=== PATIENT | male | born 2000 ===

== ENCOUNTER 2021-06-13 13:00 | Emergency (ER) | payer OTHER, SELFPAY ==
--- NOTE | ~2021-06-13 | CT_ITS ---
EXAMINATION: CT ABDOMEN AND PELVIS WITHOUT CONTRAST CLINICAL INFORMATION: Hematuria and abdominal pain COMPARISON: None TECHNIQUE: Multidetector volumetric imaging was performed from the superior aspect of the liver through the pubic symphysis. Sagittal and coronal reformatted images were obtained on the technologist's workstation. This CT examination was performed using dose optimization techniques as appropriate, variously including the following: *Automated exposure control *Adjustment of mA and/or kV according to patient size (this includes techniques or standardized protocols for targeted exams where dose is matched to indication/reason for exam; i.e. extremities or head) *Use of iterative reconstruction technique DLP: 504 mGy-cm FINDINGS: LUNG BASES: The visualized lung bases are unremarkable. LIVER, GALLBLADDER, AND BILIARY TREE: The liver is normal in size, shape, and attenuation. No focal hepatic lesion or biliary ductal dilatation is present. The gallbladder is unremarkable with no evidence of radiopaque gallstones, gallbladder wall thickening, or obvious pericholecystic inflammatory changes. PANCREAS: Unremarkable. SPLEEN: Unremarkable. ADRENAL GLANDS: Unremarkable. KIDNEYS AND URETERS: The kidneys are normal in size, shape, and attenuation. No hydronephrosis, hydroureter, or calculi seen. No perinephric stranding. BLADDER: Not optimally distended. GASTROINTESTINAL TRACT: The small and large bowel are unremarkable. The appendix is unremarkable. ABDOMINAL WALL: No significant hernia is appreciated. LYMPH NODES: Normal. VASCULAR: Unremarkable. PELVIC VISCERA: Unremarkable. OSSEOUS STRUCTURES: Unremarkable. CT/CT abdomen pelvis wo con IMPRESSION: Unremarkable exam. Fleischner guidelines were followed.
[2021-06-13 13:17] VITALS: BP 127/76; PULSE 88; RESP 18; TEMP 37.4; O2SAT 100; BMI 25.9
[2021-06-13 13:36] LABS: Appearance Urine CLOUDY; Glucose Urine UA NEG (NEG); Leukocyte Esterase Urine NEG (NEG); Nitrite Urine NEG (NEG); PH 8.5 (5.0-8.0); Specific Gravity - Urine 1.025 (1.005-1.025); UACC Culture Trigger NO; Urine Blood 3+ (NEG); Urine Ketones NEG (NEG)
[2021-06-13 13:43] LABS: Urine Protein 2+ MG/DL (NEG-TRACE)
[2021-06-13 13:44] LABS: Color Urine DK YELLOW
[2021-06-13 13:45] LABS: RBC Urine TNTC /HPF (0)
[2021-06-13 16:55] LABS: MANUAL DIFF FLAG NO
[2021-06-13 17:03] LABS: Basophils Percent Auto 0.3 % (0-2); Eosinophils Percent Auto 0.3 % (0-4); Hematocrit 44.8 % (42.0-52.0); Hemoglobin 15.2 g/dl (14.0-18.0); Imm Gran Abs Auto 0.03 X10*3/uL (0.00-0.03); Imm Gran Pct Auto 0.3 % (0.0-0.4); Lymphocytes Absolute Auto 2.1 X10*3/uL (1.2-4.9); Lymphocytes Percent Auto 22.6 % (20-40); Mean Corpuscular HGB Conc 33.9 g/dl (31.0-36.0); Mean Corpuscular Hemoglobin 30.7 pg (27.0-33.0); Mean Corpuscular Volume 90.5 fL (80.0-98.0); Mean Platelet Volume 9.4 fL (9.4-12.4); Monocytes Absolute Auto 0.6 X10*3/uL (0.1-1.2); Monocytes Percent Auto 6.2 % (2-11); Neutrophils Absolute Auto 6.5 x10*3/uL (2.0-8.3); Neutrophils Percent Auto 70.3 % (45-73); Platelet Count 240 X10*3/uL (160-400); Red Blood Count 4.95 X10*6/uL (4.60-5.80); Red Cell Distribution Width 12.2 % (11.0-16.0); White Blood Count 9.3 X10*3/uL (4.8-10.8)
--- NOTE | 2021-06-13 17:03 | ED.MALEGU ---
HPI - Male Genitourinary General Chief complaint: Urogenital-Male Stated complaint: urinating blood Time Seen by Provider: 06/13/21 15:41 Source: patient Mode of arrival: ambulatory Limitations: no limitations History of Present Illness HPI Narrative: 20-year-old male with no significant past medical history presenting to the ED with complaints of dysuria with associated hematuria that started today with small blood clots. Reports that he was seen at an outpatient clinic and was tested for gonorrhea chlamydia and was given a shot and an antibiotic to take twice a day for 7 days although he was called after 4 days and told that his gonorrhea chlamydia were negative therefore he discontinued taking his doxycycline. He reports that he was taking a multivitamin before he was seen at the clinic and he believes that this is when the hematuria/dysuria started. He reports that when he was given the doxycycline he stopped taking the multivitamin and he no longer had the dysuria/hematuria. Although when he was told that he did not have any gonorrhea chlamydia he discontinued the doxycycline after 4 days and he started his multivitamin the centrum and the hematuria/dysuria started again. He reports that he recently had unprotected intercourse with a female approximately 6 weeks ago. He reports he also started a multivitamin. He denies any fevers, chills, dizziness, headache, neck pain/stiffness, trouble swallowing or breathing, sore throat, cough, abdominal pain, back pain, black or bloody stools, rashes or any other symptoms complaints or concerns at this time. Complaint: dysuria and other (hematuria) Onset (ago): day(s) (Today) Duration: constant Location: penis Severity: mild Quality: burning Relieving factors: none Exacerbating factors: urination Associated symptoms: Reports denies other symptoms Related Data Sexually active: Yes Previous Rx's Medication Instructions Recorded doxycycline hyclate 100 mg tablet 100 mg PO BID 10 Days #20 tab 06/13/21 Allergies Allergy/AdvReac Type Severity Reaction Status Date / Time egg Allergy Vomiting Verified 06/13/21 13:16 Review of Systems Review of Systems: Constitutional : No Weight loss, No Fever, No Chills, No Night Sweats, No Fatigue, NoMalaise ENT/Mouth: No ear pain, No sore throat, No Difficulty swallowing Cardiovascular : No Chest Pain, No SOB, No Dyspnea on Exertion, No Orthopnea, NoEdema, No Palpitations Respiratory : No Cough, No Sputum, No Wheezing, No Dyspnea Gastrointestinal : No Nausea, No Vomiting, No Diarrhea, + abdominal Pain, No Hematochezia, No Melena Genitourinary : + dysuria/hematuria, No testicular pain, No irregular bleeding, No Urinary Frequency, No Urinary Incontinence, No Urgency, No Flank Pain Musculoskeletal : No joint pain, No Myalgias, No Joint Swelling Skin : No Skin Lesions, No rash Neuro : No Weakness, No Numbness, No Paresthesias, No Loss of Consciousness, NoDizziness, No Headache Psych : No Social Issues, Heme/Lymph: No Bruising, No Bleeding,No Lymphadenopathy Endocrine : No Polyuria, No Polydipsia, No Temperature Intolerance PATIENT DENIES ANY THOUGHTS OF STDS Yes all other systems are reviewed and are negative [facility] Past Medical History Attestation statement: The following information was validated with the patient. Social History Social History Advance Directives: No Advance Directives Information Provided: Yes Physical Exam Vital Signs: Vital Signs: Last Vital Signs Temp 99.4 F 06/13/21 13:17 Pulse 88 06/13/21 13:17 Resp 18 06/13/21 13:17 BP 127/76 06/13/21 13:17 Pulse Ox 100 06/13/21 13:17 BMI result Body Mass Index 25.9 vital signs have been reviewed as normal and appeared to be correct. Blood pressure normal. Heart rate normal. Respiration rate normal. Temperature normal. Oxygen saturation normal. Appearance: Alert. Oriented X3. No acute distress. Head: Normal external exam. Normocephalic. Atraumatic. Eyes: PERRLA. EOMI. Conjunctiva and sclera normal. Eyelids normal. ENT: Pharynx normal. Uvula midline. Moist mucous membranes. Neck: Normal inspection. Neck supple. FROM. No adenopathy. No meningeal signs. CVS: Normal heart rate and rhythm. Heart sound normal. No murmurs noted. Pulses normal throughout. Respiratory: No respiratory distress. Painless inspiration. Breath sounds normal. No wheezes/rales/rhonchi noted. Chest nontender. No accessory muscle usage noted or decreased air movement noted. Abdomen: Soft and nontender. Bowel sounds normal in all 4 quadrants. No distention noted. No organomegaly noted. No visible injury noted. : Chaperoned by KRISTY Steen. Normal external exam. No masses/lumps/ecchymosis/edema/erythema/lacerations/lesions/vesicles/induration or tenderness noted. No hernia noted. No inguinal lymphadenopathy noted. Normal penis free of discharge. The scrotum is normal. Testicles are both descended bilaterally and appear normal. No hydrocele or scrotal mass/swelling noted. No varicocele. Epididymides normal. No blue dot sign. Back: No CVA tenderness. Full range of motion noted. Skin: Skin warm and dry. Normal skin color. Normal skin turgor. No rashes/lesions/lacerations noted. Extremities: Extremities exhibit normal range of motion. Extremities nontender. Neuro: Oriented X 3. No motor deficit. No sensory deficit. Reflexes normal. Course Course Course Narrative: 16:45pm - 20-year-old male with no significant past medical history presenting to the ED with complaints of dysuria with associated hematuria that started today with small blood clots. Reports that he was seen at an outpatient clinic and was tested for gonorrhea chlamydia and was given a shot and an antibiotic to take twice a day for 7 days although he was called after 4 days and told that his gonorrhea chlamydia were negative therefore he discontinued taking his doxycycline. He reports that he was taking a multivitamin before he was seen at the clinic and he believes that this is when the hematuria/dysuria started. He reports that when he was given the doxycycline he stopped taking the multivitamin and he no longer had the dysuria/hematuria. Although when he was told that he did not have any gonorrhea chlamydia he discontinued the doxycycline after 4 days and he started his multivitamin the centrum and the hematuria/dysuria started again. He reports that he recently had unprotected intercourse with a female approximately 6 weeks ago. He reports he also started a multivitamin. He denies any fevers, chills, dizziness, headache, neck pain/stiffness, trouble swallowing or breathing, sore throat, cough, abdominal pain, back pain, black or bloody stools, rashes or any other symptoms complaints or concerns at this time. Plan: Labs, CT scan abdomen pelvis without IV contrast, UA, gonorrhea and chlamydia urine then re-evaluate. Reevaluation(s) Reevaluation #1: - labs returned and patient's AST/ALT at 174/105 otherwise all other labs are within normal limits. UA revealed +2 protein and blood in his urine otherwise no evidence of UTI. Patient has gonorrhea chlamydia urine pending although will not treat as patient is very adamant that he was negative approximately few days ago and he was already treated with Rocephin and doxycycline for 4 days. - therefore I discussed this case with Dr. Zambrano and at this point Dr. Dove and I do not believe that the patient needs any additional antibiotics he will need to follow up with Urology for possible outpatient cystoscope. I explained to the patient. And due to him reporting that he was already treated for gonorrhea chlamydia and he was negative will not treat at this time. Patient understands agrees with this plan. Time: 17:31 [facility] - Male Genitourinary Medical Records Attestation: I reviewed the patient's medical records. Lab Data Attestation: I reviewed the patient's lab results. Result diagrams: 06/13/21 16:50 06/13/21 16:50 Labs: Lab Results 06/13/21 06/13/21 06/13/21 Range/Units 13:18 16:50 16:50 WBC 9.3 (4.8-10.8) X10*3/uL RBC 4.95 (4.60-5.80) X10*6/uL Hgb 15.2 (14.0-18.0) g/dl Hct 44.8 (42.0-52.0) % MCV 90.5 (80.0-98.0) fL MCH 30.7 (27.0-33.0) pg MCHC 33.9 (31.0-36.0) g/dl RDW 12.2 (11.0-16.0) % Plt Count 240 (160-400) X10*3/uL MPV 9.4 (9.4-12.4) fL Immature Gran % (Auto) 0.3 (0.0-0.4) % Neut % (Auto) 70.3 (45-73) % Lymph % (Auto) 22.6 (20-40) % Harlan % (Auto) 6.2 (2-11) % Eos % (Auto) 0.3 (0-4) % Baso % (Auto) 0.3 (0-2) % Lymph # (Auto) 2.1 (1.2-4.9) X10*3/uL Harlan # (Auto) 0.6 (0.1-1.2) X10*3/uL Eos # (Auto) 0.0 (0.0-0.4) X10*3/uL Baso # (Auto) 0.0 (0.0-0.2) X10*3/uL Abs Immat Gran (auto) 0.03 (0.00-0.03) X10*3/uL Absolute Neuts (auto) 6.5 (2.0-8.3) x10*3/uL Absolute Nucleated RBC 0.000 (0.0-0.012) X10*3/uL Nucleated RBC % (auto) 0.0 (0.0-0.2) /100WBC Sodium 140 (135-145) mmol/L Potassium 4.4 (3.3-5.1) mmol/L Chloride 104 (96-108) mmol/L Carbon Dioxide 28 (22-29) mmol/L Anion Gap 12 (12-20) BUN 13 (9-16) mg/dL Creatinine 1.07 (0.5-1.4) mg/dL Estim Creat Clear Calc 115.3 Estimated GFR > 60 Random Glucose 89 (60-115) mg/dL Calcium 9.9 (8.4-10.2) mg/dL Total Bilirubin 0.4 (0.0-1.0) mg/dL AST 174 H (5-37) U/L ALT 105 H (0-40) U/L Alkaline Phosphatase 89 (39-117) U/L Total Protein 8.2 H (6.5-8.0) g/dL Albumin 4.5 (3.5-5.0) g/dL Urine Color DK YELLOW Urine Appearance CLOUDY Urine pH 8.5 H (5.0-8.0) Ur Specific [place] 1.025 (1.005-1.025) Urine Protein 2+ H (NEG-TRACE) MG/DL Urine Glucose (UA) NEG (NEG) MG/DL Urine Ketones NEG (NEG) MG/DL Urine Blood 3+ H (NEG) Urine Nitrite NEG (NEG) Ur Leukocyte Esterase NEG (NEG) Urine RBC TNTC H (0) /HPF Urine WBC 1-4 (0-4) /HPF Ur Squamous Epith Cells NONE /LPF Urine Bacteria NONE /LPF Imaging Data CT scan abdomen pelvis without IV contrast: Attestation: I personally reviewed and interpreted this imaging study as follows: Radiologist's impression: FINDINGS: LUNG BASES: The visualized lung bases are unremarkable.? LIVER, GALLBLADDER, AND BILIARY TREE: The liver is normal in size, shape, and attenuation. No focal hepatic lesion or biliary ductal dilatation is present. The gallbladder is unremarkable with no evidence of radiopaque gallstones, gallbladder wall thickening, or obvious pericholecystic inflammatory changes.? PANCREAS: Unremarkable.? SPLEEN: Unremarkable.? ADRENAL GLANDS: Unremarkable.? KIDNEYS AND URETERS: The kidneys are normal in size, shape, and attenuation. No hydronephrosis, hydroureter, or calculi seen. No perinephric stranding. ? BLADDER: Not optimally distended. GASTROINTESTINAL TRACT: The small and large bowel are unremarkable. The appendix is unremarkable.? ABDOMINAL WALL: No significant hernia is appreciated.? LYMPH NODES: Normal. VASCULAR: Unremarkable. PELVIC VISCERA: Unremarkable.? OSSEOUS STRUCTURES: Unremarkable.? CT/CT abdomen pelvis wo con IMPRESSION: Unremarkable exam. ? Fleischner guidelines were followed. Discharge Plan Discharge Clinical Impression: Hematuria, Dysuria, Elevated LFTs Patient Disposition: Home, Self-Care Instructions: Hematuria (ED), Dysuria (ED) Additional Instructions: You have pending lab results if any are positive you will be contacted. Return if any new or worsening symptoms. Follow-up with urology call them tomorrow morning and tell them that you were seen in the emergency department and you basically had a negative workup your urine was only thing that was positive which revealed blood otherwise no evidence of UTI. You have pending lab results although we will not treat you for them due to you reported that you are already negative and were treated prior to this. You will need to see Urology for an outpatient cystoscope. Also follow-up with her primary care provider. Return if any new or worsening symptoms. Prescriptions: New doxycycline hyclate 100 mg tablet 100 mg PO BID 10 Days Qty: 20 0RF Referrals: Physician,None [Primary Care Provider] - 2 days (Your PCP) Robles Tony III, MD [Physician] - 2 days (Call tomorrow to make a follow-up appointment within a week for outpatient cystoscopy) Robles Tony III, MD [Physician] - 2 days Print Language: Monegasque
[2021-06-13 17:16] LABS: Alanine Aminotransferase 105 U/L (0-40); Albumin Level 4.5 g/dL (3.5-5.0); Alkaline Phosphatase 89 U/L (39-117); Anion Gap 12 (12-20); Aspartate Amino Transferase 174 U/L (5-37); Bilirubin Total 0.4 mg/dL (0.0-1.0); Blood Urea Nitrogen 13 mg/dL (9-16); Calcium 9.9 mg/dL (8.4-10.2); Carbon Dioxide 28 mmol/L (22-29); Chloride 104 mmol/L (96-108); Creatinine Clr Calc Pharmacy 115.3; Estimated Glomerular Filt Rate > 60; Glucose Random 89 mg/dL (60-115); Potassium 4.4 mmol/L (3.3-5.1); Sodium 140 mmol/L (135-145); Total Protein 8.2 g/dL (6.5-8.0)
[2021-06-13 17:42] VITALS: BP 136/73; PULSE 80; RESP 16; TEMP 36.2; O2SAT 100
[2021-06-13 18:23] LABS: CT PCR NOT DETECTED (Not Detect.); NG PCR NOT DETECTED (Not Detect.)
== END 2021-06-13 17:51 | disposition home or self-care (01) ==
PROVIDERS: Physician Assistant Medical; Emergency Provider Emergency Medicine Emergency Medical Services
DX: R31.9 Hematuria, unspecified (principal); R30.0 Dysuria; R79.89 Other specified abnormal findings of blood chemistry
CPT/HCPCS: 36415; 74176; 80053; 81001; 85025; 87491; 87591; 99283; 99284

== ENCOUNTER 2022-04-26 10:50 | Outpatient (REF) | payer OTHER, SELFPAY ==
[2022-04-26 13:31] LABS: MANUAL DIFF FLAG NO
[2022-04-26 13:41] LABS: Basophils Percent Auto 0.5 % (0-2); Eosinophils Percent Auto 0.7 % (0-4); Hematocrit 42.8 % (42.0-52.0); Hemoglobin 14.6 g/dl (14.0-18.0); Imm Gran Abs Auto 0.03 X10*3/uL (0.00-0.03); Imm Gran Pct Auto 0.5 % (0.0-0.4); Lymphocytes Absolute Auto 1.9 X10*3/uL (1.2-4.9); Lymphocytes Percent Auto 32.7 % (20-40); Mean Corpuscular HGB Conc 34.1 g/dl (31.0-36.0); Mean Corpuscular Hemoglobin 30.1 pg (27.0-33.0); Mean Corpuscular Volume 88.2 fL (80.0-98.0); Mean Platelet Volume 9.8 fL (9.4-12.4); Monocytes Absolute Auto 0.6 X10*3/uL (0.1-1.2); Monocytes Percent Auto 10.2 % (2-11); Neutrophils Absolute Auto 3.3 x10*3/uL (2.0-8.3); Neutrophils Percent Auto 55.4 % (45-73); Platelet Count 247 X10*3/uL (160-400); Red Blood Count 4.85 X10*6/uL (4.60-5.80); Red Cell Distribution Width 12.6 % (11.0-16.0); White Blood Count 5.9 X10*3/uL (4.8-10.8)
[2022-04-26 13:51] LABS: Appearance Urine Clear; Color Urine Yellow; Glucose Urine UA Negative (Negative); Leukocyte Esterase Urine Small (1+) (Negative); Nitrite Urine Negative (Negative); PH 5.5 (5.0-9.0); Specific Gravity - Urine 1.025 (1.005-1.025); UMIC TRIGGER UA YES; Urine Blood Trace (Negative); Urine Ketones Negative (Negative); Urine Protein Negative (Neg-Trace)
[2022-04-26 13:55] LABS: Bacteria Urine 1+ (None Seen); Hyaline Casts Urine 0-2 /LPF (0-2); RBC Urine 0-2 /HPF (0-2); WBC Urine 21-50 /HPF (0-5)
[2022-04-26 14:21] LABS: Creatinine Urine 209.87 mg/dL; Microalbum/Creatinine Ratio Ur 4.7 ug/mg cr
[2022-04-26 14:55] LABS: Alanine Aminotransferase 36 U/L (0-40); Albumin Level 4.3 g/dL (3.5-5.0); Alkaline Phosphatase 91 U/L (39-117); Anion Gap 10 (12-20); Aspartate Amino Transferase 23 U/L (5-37); Bilirubin Total 0.7 mg/dL (0.0-1.0); Blood Urea Nitrogen 15 mg/dL (9-16); Calcium 9.3 mg/dL (8.4-10.2); Carbon Dioxide 28 mmol/L (22-29); Chloride 106 mmol/L (96-108); Cholesterol 243 mg/dL; Estimated Glomerular Filt Rate > 60; Glucose Fasting 97 mg/dL (60-99); HDL Cholesterol 42 mg/dL; LDL Cholesterol Calculated 185 mg/dl; Potassium 4.3 mmol/L (3.3-5.1); Sodium 140 mmol/L (135-145); TSH reflex Free T4 2.44 uIU/mL (0.32-4.0); Total Protein 7.7 g/dL (6.5-8.0); Triglycerides 84 mg/dL
[2022-04-26 15:21] LABS: CT PCR NOT DETECTED (Not Detect.); NG PCR NOT DETECTED (Not Detect.)
[2022-04-27 06:50] LABS: Syphilis Screen Nonreactive (Nonreactive)
[2022-04-27 07:41] LABS: HBS Num1 253.91 mIU/mL (0-7.99); HBsAGNum1 0.41 S/CO (0.00-0.99); HIV AB/AG Nonreactive (Nonreactive); HIV Num 1 0.15 S/CO (0.00-0.99); Hepatitis B Core Antibody Nonreactive (Nonreactive); Hepatitis B Surface Antigen Negative (Negative); ~HepC Num1 0.09 S/CO (0.00-0.79); ~Hepatitis B Surface Antibody REACTIVE (Nonreactive); ~Hepatitis C Antibody Nonreactive (Nonreactive)
== END 2022-04-26 10:51 | disposition home or self-care (01) ==
LOC: HO.WFDLDS 10:50
PROVIDERS: Visit Provider Family Medicine
DX: Z00.00 Encounter for general adult medical examination without abnormal findings (principal); Z11.3 Encounter for screening for infections with a predominantly sexual mode of transmission; Z11.4 Encounter for screening for human immunodeficiency virus [HIV]; I10 Essential (primary) hypertension
CPT/HCPCS: 36415; 80053; 80061; 81001; 82043; 84443; 85025; 86704; 86706; 86780; 86803; 87340; 87389; 87491; 87591

== ENCOUNTER 2022-04-27 12:16 | Outpatient (REF) | payer OTHER, SELFPAY ==
--- NOTE | ~2022-04-27 | XR_ITS ---
EXAMINATION: XR TIBIA AND FIBULA, RIGHT CLINICAL INFORMATION: Pain. COMPARISON: None TECHNIQUE: AP and lateral views of the right tibia and fibula were obtained. FINDINGS: The bones and soft tissues are normal. No fracture. No periosteal thickening or erosion. No osseous lesions. XR/XR tibia fibula RT 2V IMPRESSION: Normal right tibia and fibula. EXAMINATION: XR TIBIA AND FIBULA, LEFT CLINICAL INFORMATION: Pain. COMPARISON: None TECHNIQUE: AP and lateral views of the left tibia and fibula were obtained. FINDINGS: The bones and soft tissues are normal. No fracture. No periosteal thickening or erosion. No osseous lesions. IMPRESSION: Normal left tibia and fibula.
--- NOTE | ~2022-04-27 | XR_ITS ---
EXAMINATION: XR TIBIA AND FIBULA, RIGHT CLINICAL INFORMATION: Pain. COMPARISON: None TECHNIQUE: AP and lateral views of the right tibia and fibula were obtained. FINDINGS: The bones and soft tissues are normal. No fracture. No periosteal thickening or erosion. No osseous lesions. XR/XR tibia fibula LT 2V IMPRESSION: Normal right tibia and fibula. EXAMINATION: XR TIBIA AND FIBULA, LEFT CLINICAL INFORMATION: Pain. COMPARISON: None TECHNIQUE: AP and lateral views of the left tibia and fibula were obtained. FINDINGS: The bones and soft tissues are normal. No fracture. No periosteal thickening or erosion. No osseous lesions. IMPRESSION: Normal left tibia and fibula.
[2022-04-27 13:54] LABS: Appearance Urine Clear; Color Urine Yellow; Glucose Urine UA Negative (Negative); Leukocyte Esterase Urine Small (1+) (Negative); Nitrite Urine Negative (Negative); Specific Gravity - Urine 1.025 (1.005-1.025); UMIC TRIGGER UA YES; Urine Blood Negative (Negative); Urine Ketones Negative (Negative); Urine Protein Negative (Neg-Trace)
[2022-04-27 13:59] LABS: Bacteria Urine None Seen (None Seen); Hyaline Casts Urine 0-2 /LPF (0-2); Squamous Epithelial Cell Urine 0-2 /HPF (0-2); WBC Urine 21-50 /HPF (0-5)
== END 2022-04-27 12:17 | disposition home or self-care (01) ==
LOC: HO.XRAY 12:16
PROVIDERS: PCP Family Medicine; Visit Provider Family Medicine
DX: Z00.00 Encounter for general adult medical examination without abnormal findings (principal); M79.662 Pain in left lower leg; M79.661 Pain in right lower leg; R82.90 Unspecified abnormal findings in urine
CPT/HCPCS: 73590; 81001

== ENCOUNTER 2022-07-06 13:00 | Outpatient (RCR) | payer OTHER, SELFPAY ==
--- NOTE | 2022-05-14 15:26 | MHC.PT.EP ---
[facility] [place] Office [place] [facility] [place] Office [address] Addis Elliott [address] [phone] F: [phone] F: [phone] F: [phone] F: [phone] Physical Therapy Plan of Care Date of Evaluation: Date of Surgery: Diagnosis: PAIN IN TATUM LOWER LEGS, ? JARRELL SPLINTS Assessment: 21 YO MALE REF TO PT WITH TATUM JARRELL SPLINTS W ONSET 12/2021, SUSTAINED AFTER RUNNING IN [place] (Pt IS [place] [employer]). Pt NOTES HE HAS NOT BEEN RUNNING OR EXERCISING, HE IS NOT SYMPTOMATIC WITH WALKING, HOWEVER, W REPETITIVE STAIR NAVIGATION OR LIFTING, HE HAS SXS. OBJECTIVE FINDINGS INCLUDE: HYPOMOBILE TATUM HIPS AND ANKLE DF/PF, MECHANICAL ISSUE OF GENU VALGUS AND PES PLANUS, GENERALIZED WEAKNESS IN LEs AND LUMBOPELVIC REGION, AND SOFT TISSUE PAIN IN TATUM MID SHINS. Pt NOTES HE HAS NOT TRIALED ICE OR COMPRESSION SOCKS- AND , HE DENIES ORTHOTIC TRIAL. Pt WOULD BENEFIT FROM PT TO ADDRESS THE ABOVE FINDINGS, PAIN/ SX MGMT, AND DEV A PROGRESSIVE HEP. Frequency and Duration: The patient will be seen 2 x WK x 5 WKS Short Term Goals: * DECR TATUM JARRELL SXS TO 2-3/10 W REG ADLs *IMPROVE AROM TATUM ANKLES/ HIP FLEXORS/ ITB/ HIP ROTATORS *Pt DEMON PROPR SQUAT MECH Single Needle Operator Goals: * Pt INDEP W HEP AND SELF-SX MGMT TECHN *Pt RESUME REG ADLs/ EXERCISE AND PROGR RETURN TO [place] -> RUNNING W MORE EFFICIENT MECHANICS * Pt'S LEFI SCORE IMPROVE BY 10 POINTS (AT EVAL 44/80) *Pt'S LEs STRENGTH IMPROVED BY 1/2 TO 1 GRADE Treatment Plan: Modalities to reduce pain, spasms and effusion. Manual therapy to restore motion and function. Therapeutic exercise to improve strength and flexibility. Neuromuscular re-education for posture and balance. Therapeutic activities to return to functional activities of daily living. Electronically signed by: Miracle Chi,PT Please sign and return to therapist. Thank you for your referral.
--- NOTE | 2022-07-25 14:49 | MHC.PT.DC ---
[facility] [place] Office [place] Office [place] Office [address] Addis Elliott [address] [phone] F: [phone] F: [phone] F: [phone] F: [phone] Physical Therapy Discharge Report Diagnosis: PAIN IN TATUM LOWER LEGS, ? JARRELL SPLINTS Date of Surgery: Date of Evaluation: 05/14/22 Date of Discharge: 07/25/22 Treatments to Date: 7 Cancellations to Date: 6 No Shows to Date: 3 Discharge Status: Achieved Goals Improved Function Independent with HEP Visit Non-compliance Discharge Summary: THE Pt HAS PROGRESSED IN PT ADDRESSING BILAT JARRELL SPLINTS- WE RE-EDUC Pt REGARDING THE IMPORTANCE OF HEP COMPLIANCY TO REDUCE EXACERBATION OF SXS AND PREVENTATIVE MANAGEMENT OF HIS SXS. AT HIS LAST ATTENDED PT SESSION ON 07/06/22, THE Pt RAN ON THE TM , HE NOTED MILD TATUM MEDIAL JARRELL SORENESS- HE HAS PRONATION DROP AND TIGHTER Rt > Lt HIP GIRDLE. Pt WAS TO INCORPORATE A TRIAL OF SELF- ICING AND WE DISCUSSED FOOTWEAR AND COMPRESSION SOCKS. HE IS D/C AT THIS TIME DUE TO OUR DEPT ATTENDANCE POLICY. Electronically signed by: CECELIA KOHLER,PT Please sign and return to therapist. Thank you for your referral.
== END 2022-07-25 14:50 | disposition home or self-care (01) ==
LOC: HO.PT 13:00
PROVIDERS: PCP Family Medicine; Visit Provider Family Medicine
DX: M79.661 Pain in right lower leg (principal); M79.662 Pain in left lower leg
CPT/HCPCS: 97110; 97140; 97162; 97530

== ENCOUNTER → 2022-07-13 11:01 | Outpatient (REF) | payer OTHER, SELFPAY ==
--- NOTE | ~2022-07-13 | NM_ITS ---
EXAMINATION: THREE PHASE BONE SCAN CLINICAL INFORMATION: Bilateral rabago pain, rule out stress fractures. Patient states in the and runs in fatigue and bruits.. COMPARISON: No previous bone scan is available for comparison. Radiographs of the bilateral lower legs dated 04/27/2022 are available for comparison.. TECHNIQUE: Initial rapid sequence images were obtained over the lower legs in the anterior and posterior projections during the bolus injection of 32 mCi Tc-99m MDP. Static images of the knees to the feet in multiple projections were then obtained 2.25 hours post injection. FINDINGS: Initial rapid sequence images show bilaterally symmetrical flow to the knees and lower extremities. Blood pool images obtained immediately following the flow study show a faint equivocal focus of minimally increased activity, likely due to early static uptake medially in the mid left tibia. The delayed static images show a moderate diffuse increase in activity in the proximal two thirds of the anterolateral cortices of both tibias. In addition, there are foci which are fairly symmetrically located bilaterally in the midshaft of both tibias, slightly more intensely on the left in the medial posterior cortex. There is also a faint focus of increased activity laterally in the mid right foot, probably at the base of the right fifth metatarsal bone. Very faintly increased activity is present in the posterior plantar surface of the right calcaneus. No other abnormalities are visualized.. NM/NM bone 3 phase IMPRESSION: 1. Bilateral abnormalities in the posterior medial cortex of the mid tibial shafts bilaterally, slightly more prominently on the left are noted and are most consistent with recent or subacute stress fractures. 2. Additional moderately diffuse abnormalities in the anterolateral cortices of both tibias are present, and these abnormalities are most likely due to a diffuse periostitis, coexisting with the stress fractures described above.. 3. A faint abnormality is just barely visualized in the region of the right fifth metatarsal base. This is probably due to a healing fracture at this site and does not appear acute. 4. Also just barely visualized is a faint abnormality in the posterior plantar surface of the right calcaneus which is nonspecific but likely due to a very mild plantar fasciitis.
== END ==
LOC: HO.NUCMED 11:01
PROVIDERS: PCP Family Medicine; Visit Provider Family Medicine
DX: M79.661 Pain in right lower leg (principal); M79.662 Pain in left lower leg
CPT/HCPCS: 78315; A9503

== ENCOUNTER 2022-10-17 11:48 | Outpatient (REF) | payer OTHER, SELFPAY ==
[2022-10-17 14:30] LABS: Alanine Aminotransferase 51 U/L (0-40); Albumin Level 4.3 g/dL (3.5-5.0); Alkaline Phosphatase 107 U/L (39-117); Anion Gap 12 (12-20); Aspartate Amino Transferase 29 U/L (5-37); Bilirubin Total 0.7 mg/dL (0.0-1.0); Blood Urea Nitrogen 12 mg/dL (9-16); Carbon Dioxide 26 mmol/L (22-29); Chloride 106 mmol/L (96-108); Cholesterol 230 mg/dL; Estimated Glomerular Filt Rate > 60; Glucose Fasting 88 mg/dL (60-99); HDL Cholesterol 34 mg/dL; LDL Cholesterol Calculated 168 mg/dl; Sodium 140 mmol/L (135-145); Total Protein 8.1 g/dL (6.5-8.0); Triglycerides 144 mg/dL
== END 2022-10-17 11:49 | disposition home or self-care (01) ==
LOC: HO.HMGCLDS 11:48
PROVIDERS: PCP Family Medicine; Visit Provider Family Medicine
DX: Z00.00 Encounter for general adult medical examination without abnormal findings (principal)
CPT/HCPCS: 36415; 80053; 80061

== ENCOUNTER 2022-11-09 13:35 | Outpatient (AMB) | payer OTHER, SELFPAY ==
[2022-11-09 13:51] VITALS: BP 110/64; PULSE 76; RESP 12; TEMP 36.3; O2SAT 99; BMI 32.5
--- NOTE | 2022-11-09 13:51 | A.OFFPC_ITS ---
Vital Signs 11/09/22 13:51 Height 5 ft 11 in Weight 233 lb 2 oz BMI 32.5 BP 110/64 Blood Pressure Location Rt brachial Position Sitting Respiration 12 Pulse 76 Pulse Source Pulse Oximeter Temp 97.4 F Temp Source Temporal Artery Scan Pulse Oximetry (%) 99 Oxygen Delivery Method Room Air Intake Visit Reasons: f/u hyperlipidemia and stress fractures Intake Note: Patient states that his stress fractures are in both legs in the tibia region. Patient states the fractures hurt only when he is overdoing physical activities. Genetics Nurse Required: No Accompanied by: Self / Same As Patient Allergies egg Allergy (Verified 11/09/22 13:58) Vomiting Tobacco use date assessed: 10/05/22 Dental Screening Dental Screen Date: 11/09/22 Did you have a dental visit in the last 12 months?: Yes Did you have a dental problem in the last 6 months where you did not have access to dental care?: No Was dental information given to patient?: Patient has dentist HPI f/u hyperlipidemia and stress fractures HPI Details 22 y/o male presents to f/u hyperlipidemia and stress fractures. Bone scan had shown stress fractures and splin shints. Labs were drawn 10/17/22. Reviewed labs with pt. Elevated ALT of 51. Triglycerides 144. TC 230. LDL 168. HDL low at 34. He has not been able to exercise much. [facility] Medical History (Updated 11/09/22 @ 14:57 by Robert Montiel) No pertinent past medical history Surgical History (Updated 11/09/22 @ 14:01 by Casi Dooley MA) No pertinent past surgical history Social History (Updated 11/09/22 @ 14:05 by Casi Dooley MA) Household Members: Family Both parents involved: No Caregiver staying overnight: No Housing: House Are you a primary patient care technician instructor to a significant other at home: No Do you presently have visiting nurse or other home services: No 75 years or older and lives alone: No Alcohol intake: never Patient Tobacco Use Status: Never used Tobacco e-Cigarette/Vaping Use: Never Used Second Hand Smoke Exposure: No Special warren needs: No Agree to transfusion: Yes service: Yes Current occupational status: employed Sexual orientation: Straight/Heterosexual Gender identity: Male Cognitive needs: No Hearing needs: No Vision needs: No Questionnaire Thrive Questionnaire Date Thrive assessed: 06/28/22 SHIVA-7 AMB Questionnaire SHIVA-7 Date SHIVA - 7 assessed: 06/28/22 Source: Developed by Drs. Dong Naik, Lisa Toney, Vishnu Vaz and colleagues, with an educational george from [employer]. Review of Systems Const Denies chills, Denies fatigue, Denies fever(s), Denies headache(s) and Denies weakness ENT Denies dizziness and Denies headache(s) Card Denies dyspnea Resp Denies cough, Denies dyspnea, Denies wheezing and Denies other (shortness of breath) Musc Denies numbness and Denies tingling Neuro Denies dizziness, Denies headache(s), Denies numbness, Denies tingling and Denies weakness Psych Denies anxiety and Denies depression Endo Denies fatigue Aller/Immun Denies wheezing Physical exam (Primary Care) Vital Signs: Last Vital Signs Temp 97.4 F 11/09/22 13:51 Pulse 76 11/09/22 13:51 Resp 12 11/09/22 13:51 BP 110/64 11/09/22 13:51 Pulse Ox 99 11/09/22 13:51 Oxygen Delivery Method Room Air 11/09/22 13:51 BMI result Body Mass Index 32.5 Tobacco/Smoking Status: Tobacco use Status Tobacco use date assessed 10/05/22 11/09/22 14:06 Patient Tobacco Use Status Never used Tobacco 11/09/22 14:06 e-Cigarette/Vaping Use Never Used 11/09/22 14:06 Thrive Assessment: Date of Thrive Assessment Date Thrive assessed 06/28/22 11/09/22 14:06 Const General: well developed; No acute distress Nutritional Appearance: well nourished Orientation/consciousness: patient oriented x3 HENMT Head: Yes normocephalic and Yes atraumatic Eyes General: appearance normal, both eyes and all related structures Pupils: Equal, round and reactive pupils present EOM: EOMs intact bilaterally Resp Effort & Inspection: normal respiratory effort Neuro General: patient oriented x3 and gait normal Cranial nerves: Yes Equal, round and reactive pupils present Psych Affect: normal affect Assessment and Plan Assessment & Plan (1) Hyperlipidemia: Code(s): E78.5 - Hyperlipidemia, unspecified Plan: LDL cholesterol is still too high Start atorvastatin Also HDL has dropped as he has not been able to exercise as much due to rabago splints and tibial stress fractures He can begin to increase his activity which may bring his HDL up. (2) Pain in rabago: Code(s): M79.669 - Pain in unspecified lower leg Plan: Has been resting due to tibial stress fractures and rabago splints for the past 6 weeks He can begin to exercise again He will let me know if he is having any new pain or problems (3) Low HDL (under 40): Code(s): E78.6 - Lipoprotein deficiency Plan: As above (4) Fatigue: Code(s): R53.83 - Other fatigue Plan: Most likely secondary to sleep apnea Patient requests checking testosterone level which is ordered Orders: Orders Comprehensive Met. Panel 8 Weeks E78.5 - Hyperlipidemia, unspecified Lipid Panel 8 Weeks E78.5 - Hyperlipidemia, unspecified, Z00.00 - Encounter for general adult medical examination without abnormal findings Comprehensive Met. Panel Today R53.83 - Other fatigue Testosterone, Free/Total Today R53.83 - Other fatigue Coding Level of Care Code Est Pt Level 3 (07522) Diagnoses Hyperlipidemia E78.5 Pain in rabago M79.669 Low HDL (under 40) E78.6 Fatigue R53.83
== END 2022-11-09 14:58 | disposition home or self-care (01) ==
PROVIDERS: PCP Family Medicine; Visit Provider Family Medicine
DX: E78.5 Hyperlipidemia, unspecified (principal); M79.669 Pain in unspecified lower leg; E78.6 Lipoprotein deficiency; R53.83 Other fatigue
CPT/HCPCS: 99213

== ENCOUNTER 2022-11-26 12:32 | Outpatient (AMB) | payer OTHER, SELFPAY ==
[2022-11-26 12:58] VITALS: BP 118/84; PULSE 76; O2SAT 98; BMI 33.7
--- NOTE | 2022-11-26 12:58 | A.OFFVIS_ITS ---
Intake Vital Signs 11/26/22 12:58 Height 5 ft 11 in Weight 242 lb BMI 33.7 BP 118/84 Blood Pressure Location Rt brachial Position Sitting Pulse 76 Pulse Source Pulse Oximeter Pulse Oximetry (%) 98 Oxygen Delivery Method Room Air Intake Visit Reasons: NPV-ANA - Confirm Intake Note: Pt presents as a NPV for ANA. 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 Pt reports trouble sleeping, difficulty falling asleep and staying sleep. He snores loudly, and has feeling chocking when he sleeps. He has non refreshing sleep and being tired all day. Pt states that his average sleep hours only 4 hrs. He gained wt about 70 lb over the last year. Sleep questionnaire: Have you ever been diagnosed with a sleep disorder? No. Have you ever had a sleep study in the past? No. Have you ever been treated for a sleep disorder? No. Do you take medications for a sleep disorder? No. Do you snore? Yes. Do you wake up gasping at night? Yes. Do you have episodes of apneas? No. If yes, are they witnessed? No, sleeps alone. Do you have episodes of nocturnal chest pain or dyspnea? No. Do you have difficulty initiating sleep? Yes. Do you have difficulty maintaining sleep? Yes. Do you wake up tired? Yes. Do you have headaches upon awakening? No. Do you wake up with dry mouth or throat? No. Do you have GERD? Yes, but only when he had sweets before bedtime. Do you have nocturia? No. Do you have nocturnal leg cramps? No. Do you have symptoms of restless legs? No. Do you act out your dreams? No. Sleep hygiene questionnaire: What is your usual sleep routine? Usual bedtime is at 2-3 am; Usual wake up time is at 6 am . Do you take naps? No. Is your sleep environment cool, dark, and quiet? yes. Do you exercise? 8 pm to 9 pm every other day. Do you take caffeine or other stimulants? No. Do you use electronics in bed? Watch TV until he fall asleep. What is your work schedule? 7:30 am to 4 pm. Hypersomnolence questionnaire: Do you have daytime tiredness or fatigue? Yes. Do you easily fall asleep when inactive? No. Have you ever had episodes of sudden weakness? No. Have you ever had episodes of sudden weakness associated with strong emotions? No. [facility] Medical History No pertinent past medical history Surgical History No pertinent past surgical history Social History (Updated 11/26/22 @ 13:00 by Lexy Jacome CMA) Household Members: Family Both parents involved: No Caregiver staying overnight: No Housing: House Are you a primary technical healthcare consultant to a significant other at home: No Do you presently have visiting nurse or other home services: No 75 years or older and lives alone: No Alcohol intake: never Patient Tobacco Use Status: Never used Tobacco e-Cigarette/Vaping Use: Never Used Second Hand Smoke Exposure: No Special warren needs: No Agree to transfusion: Yes service: Yes Current occupational status: employed Sexual orientation: Straight/Heterosexual Gender identity: Male Cognitive needs: No Hearing needs: No Vision needs: No Review of Systems Const All systems reviewed & are unremarkable except as noted in HPI and below ENT Reports Normal hearing present Neuro Reports Normal hearing present Physical Exam Vital Signs: Last Vital Signs Pulse 76 11/26/22 12:58 BP 118/84 11/26/22 12:58 Pulse Ox 98 11/26/22 12:58 Oxygen Delivery Method Room Air 11/26/22 12:58 BMI result Body Mass Index 33.7 Const General: cooperative Nutritional Appearance: obese Orientation/consciousness: patient oriented x3 Limitations: no limitations HEENT Throat: Yes other (mallampati grade 4) Neck Neck: Yes full ROM and Yes supple Resp Effort & Inspection: normal respiratory effort and able to speak in complete sentences Neuro General: patient oriented x3, gait normal and moves all extremities Cranial nerves: Yes Bilaterally intact EOM present, Yes Normal facial strength present, Yes Midline tongue present, Yes Symmetric palate elevation present, Yes Normal hearing present, Yes Ability to bilaterally rotate head present and Yes Ability to bilaterally elevate shoulders present Cognition (Neuro): normal cognition Gait exam (Neuro): Normal gait present Motor exam (neuro): 5/5 motor strength present throughout, Pronator motor function not present and no tremor noted Psych Appearance: grossly normal Mental Status: mental status grossly normal Speech and movement: Normal speech and movement present Affect: normal affect Assessment & Plan Assessment & Plan (1) Daytime sleepiness: Code(s): R40.0 - Somnolence (2) Sleep apnea: Code(s): G47.30 - Sleep apnea, unspecified Plan Pt is advised to undergo home sleep study to assess for sleep apnea. Will f/u with pt after study to discuss results and appropriate treatment options. Advised patient to start melatonin 3 mg qHS to promote sleep and help staying sleep. Pt to call with any worsening concerns or questions. Orders: Orders RT home sleep study Today G47.30 - Sleep apnea, unspecified, R40.0 - Somnolence, R53.83 - Other fatigue Medications: New melatonin 3 mg PO BEDTIME 30 days PRN 30 tabs 2RF sleep Coding Level of Care Code New Pt Level 4 (57531) Diagnoses Daytime sleepiness R40.0 Sleep apnea G47.30
== END 2022-11-26 13:42 | disposition home or self-care (01) ==
PROVIDERS: PCP Family Medicine; Visit Provider Nurse Practitioner Family
DX: R40.0 Somnolence (principal); G47.30 Sleep apnea, unspecified
CPT/HCPCS: 99204

== ENCOUNTER → 2022-11-26 12:32 | Outpatient (BNVA) | payer OTHER, SELFPAY | PROVIDERS: PCP Family Medicine; Visit Provider Nurse Practitioner Family | DX: R53.83 Other fatigue (principal); G47.30 Sleep apnea, unspecified; R40.0 Somnolence | CPT/HCPCS: 99202 ==

== ENCOUNTER 2023-01-09 08:35 | Outpatient (REF) | payer OTHER, SELFPAY ==
[2023-01-09 12:46] LABS: Alanine Aminotransferase 35 U/L (0-40); Albumin Level 4.3 g/dL (3.5-5.0); Alkaline Phosphatase 88 U/L (39-117); Anion Gap 11 (12-20); Aspartate Amino Transferase 25 U/L (5-37); Bilirubin Total 0.2 mg/dL (0.0-1.0); Blood Urea Nitrogen 11 mg/dL (9-16); Calcium 9.5 mg/dL (8.4-10.2); Carbon Dioxide 25 mmol/L (22-29); Chloride 108 mmol/L (96-108); Cholesterol 231 mg/dL (<200); Estimated Glomerular Filt Rate > 60; Glucose Random 102 mg/dL (60-115); HDL Cholesterol 33 mg/dL (>40); LDL Cholesterol Calculated 162 mg/dL (<100); Potassium 3.9 mmol/L (3.3-5.1); Sodium 140 mmol/L (135-145); Total Protein 7.8 g/dL (6.5-8.0); Triglycerides 183 mg/dL (<150)
== END 2023-01-09 08:36 | disposition home or self-care (01) ==
LOC: HO.HMGCLDS 08:35
PROVIDERS: PCP Family Medicine; Visit Provider Family Medicine
DX: Z00.00 Encounter for general adult medical examination without abnormal findings (principal); E78.5 Hyperlipidemia, unspecified
CPT/HCPCS: 36415; 80053; 80061

== ENCOUNTER 2023-01-11 12:38 | Outpatient (AMB) | payer OTHER, SELFPAY ==
[2023-01-11 13:06] VITALS: BP 108/62; PULSE 81; RESP 12; TEMP 36.6; O2SAT 99; BMI 33.2
--- NOTE | 2023-01-11 13:06 | MHC.PC.OV ---
Vital Signs 01/11/23 13:06 Height 5 ft 11 in Weight 238 lb 4 oz BMI 33.2 BP 108/62 Blood Pressure Location Rt brachial Position Sitting Respiration 12 Pulse 81 Pulse Source Pulse Oximeter Temp 97.9 F Temp Source Temporal Artery Scan Pulse Oximetry (%) 99 Oxygen Delivery Method Room Air Intake Visit Reasons: f/u hyperlipidemia [phone] Intake Note: Patient states that his main concern is to lose weight. Waste Chopper Required: No Accompanied by: Self / Same As Patient Allergies egg Allergy (Verified 01/11/23 13:13) Vomiting Tobacco use date assessed: 10/05/22 Dental Screening Dental Screen Date: 01/11/23 Did you have a dental visit in the last 12 months?: Yes Did you have a dental problem in the last 6 months where you did not have access to dental care?: No Was dental information given to patient?: Patient has dentist HPI f/u hyperlipidemia [phone] HPI Details 22 y/o male presents to f/u HLD. Labs were drawn 01/09/23. Reviewed labs with pt. Triglycerides 183. TC 231. LDL 162. HDL low at 33. Had started him on artovastatin 20mg daily in October. Pt is concerned about his weight today. HPI Comments History of Present Illness Details Documentation assistance for Holden Yancey MD, was provided by Robert Montiel, Carpet Layer Helper on 01/11/2023 2:02 PM MALIHA. I, Dr. Yancey, have read, observed, and verified documentation. [facility] Medical History No pertinent past medical history Surgical History No pertinent past surgical history Social History Household Members: Family Both parents involved: No Caregiver staying overnight: No Housing: House Are you a primary rn primary care to a significant other at home: No Do you presently have visiting nurse or other home services: No 75 years or older and lives alone: No Alcohol intake: never Patient Tobacco Use Status: Never used Tobacco e-Cigarette/Vaping Use: Never Used Second Hand Smoke Exposure: No Special warren needs: No Agree to transfusion: Yes service: Yes Current occupational status: employed Sexual orientation: Straight/Heterosexual Gender identity: Male Cognitive needs: No Hearing needs: No Vision needs: No Questionnaire Thrive Questionnaire Date Thrive assessed: 06/28/22 SHIVA-7 AMB Questionnaire SHIVA-7 Date SHIVA - 7 assessed: 06/28/22 Source: Developed by Drs. Dong Naik, Lisa Toney, Vishnu Vaz and colleagues, with an educational george from [employer]. Review of Systems Const Denies chills, Reports fatigue, Denies fever(s), Denies headache(s) and Denies weakness ENT Denies dizziness and Denies headache(s) Card Denies dyspnea Resp Denies cough, Denies dyspnea, Denies wheezing and Denies other (shortness of breath) Musc Denies numbness and Denies tingling Neuro Denies dizziness, Denies headache(s), Denies numbness, Denies tingling and Denies weakness Psych Denies anxiety and Denies depression Endo Reports fatigue Aller/Immun Denies wheezing Physical exam (Primary Care) Vital Signs: Last Vital Signs Temp 97.9 F 01/11/23 13:06 Pulse 81 01/11/23 13:06 Resp 12 01/11/23 13:06 BP 108/62 01/11/23 13:06 Pulse Ox 99 01/11/23 13:06 Oxygen Delivery Method Room Air 01/11/23 13:06 BMI result Body Mass Index 33.2 Tobacco/Smoking Status: Tobacco use Status Tobacco use date assessed 10/05/22 01/11/23 13:14 Patient Tobacco Use Status Never used Tobacco 01/11/23 13:14 e-Cigarette/Vaping Use Never Used 01/11/23 13:14 Thrive Assessment: Date of Thrive Assessment Date Thrive assessed 06/28/22 01/11/23 13:14 Const General: well developed; No acute distress Nutritional Appearance: obese Orientation/consciousness: patient oriented x3 HENMT Head: Yes normocephalic and Yes atraumatic Eyes General: appearance normal, both eyes and all related structures Pupils: Equal, round and reactive pupils present EOM: EOMs intact bilaterally Resp Effort & Inspection: normal respiratory effort Neuro General: patient oriented x3 and gait normal Cranial nerves: Yes Equal, round and reactive pupils present Psych Affect: normal affect Assessment and Plan Assessment & Plan (1) Hyperlipidemia: Code(s): E78.5 - Hyperlipidemia, unspecified Plan: Patient presents to follow-up hyperlipidemia. He was given a script for atorvastatin in mid October. He notes that he has not been very compliant with this medication Lipid levels essentially unchanged. Encouraged increased consistency/compliance with this medication and patient agrees do so. Will follow-up again in 2 months (2) Obesity (BMI 30-39.9): Code(s): E66.9 - Obesity, unspecified Plan: Encouraged weight loss and patient is interested in weight management program Referred (3) Fatigue: Code(s): R53.83 - Other fatigue Plan: Has sleep study ordered and follow-up with sleep medicine afterwards. Also checking CBC and testosterone levels (4) Elevated liver enzymes: Code(s): R74.8 - Abnormal levels of other serum enzymes Plan: Improved/resolved Encouraged further weight loss Orders: Orders Lipid Panel Today E78.5 - Hyperlipidemia, unspecified, Z00.00 - Encounter for general adult medical examination without abnormal findings Testosterone, Free/Total Today R53.83 - Other fatigue Comprehensive [place]. Panel Fast Today E78.5 - Hyperlipidemia, unspecified, Z00.00 - Encounter for general adult medical examination without abnormal findings Complete Blood Count Auto Diff Today R53.83 - Other fatigue, Z00.00 - Encounter for general adult medical examination without abnormal findings Referrals Medical Weight Management Referral E66.9 - Obesity, unspecified, E78.5 - Hyperlipidemia, unspecified, R74.8 - Abnormal levels of other serum enzymes Coding Level of Care Code Est Pt Level 4 (20112) Diagnoses Hyperlipidemia E78.5 Obesity (BMI 30-39.9) E66.9 Fatigue R53.83 Elevated liver enzymes R74.8
== END 2023-01-11 14:11 | disposition home or self-care (01) ==
PROVIDERS: PCP Family Medicine; Visit Provider Family Medicine
DX: E78.5 Hyperlipidemia, unspecified (principal); E66.9 Obesity, unspecified; R53.83 Other fatigue; Z68.33 Body mass index [BMI] 33.0-33.9, adult; R74.8 Abnormal levels of other serum enzymes
CPT/HCPCS: 99214

== ENCOUNTER → 2023-01-17 11:19 | Outpatient (REF) | payer OTHER, SELFPAY | LOC: HO.SL 11:19 | PROVIDERS: PCP Family Medicine; Visit Provider Nurse Practitioner Family | DX: R53.83 Other fatigue (principal); G47.30 Sleep apnea, unspecified; R40.0 Somnolence | CPT/HCPCS: 95806 ==

== ENCOUNTER → 2023-01-17 11:33 | Outpatient (BNV) | payer OTHER, SELFPAY | PROVIDERS: PCP Family Medicine; Visit Provider Psychiatry & Neurology Neurology | DX: G47.33 Obstructive sleep apnea (adult) (pediatric) (principal) | CPT/HCPCS: 95806 ==

== ENCOUNTER 2023-02-08 14:24 | Outpatient (AMB) | payer OTHER, SELFPAY ==
[2023-02-08 15:10] VITALS: BP 116/60; PULSE 65; TEMP 36.4; O2SAT 99; BMI 33.3
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
== END 2023-02-08 16:10 | disposition home or self-care (01) ==
PROVIDERS: PCP Family Medicine; Visit Provider Physician Assistant Medical
DX: M62.830 Muscle spasm of back (principal); S06.0XAA Concussion with loss of consciousness status unknown, initial encounter
CPT/HCPCS: 99213

== ENCOUNTER 2023-04-01 14:05 | Outpatient (AMB) | payer OTHER, SELFPAY ==
[2023-04-01 14:10] VITALS: BP 122/80; PULSE 77; O2SAT 98; BMI 34.9
--- NOTE | 2023-04-01 14:10 | MHC.OFFVIS ---
Intake Vital Signs 04/01/23 14:10 Height 5 ft 11 in Weight 250 lb 4 oz BMI 34.9 BP 122/80 Blood Pressure Location Rt brachial Position Sitting Pulse 77 Pulse Source Pulse Oximeter Pulse Oximetry (%) 98 Oxygen Delivery Method Room Air Intake Visit Reasons: 4m follow up ANA/ Confirmed Intake Note: Pt presents to the office today for a 4 month follow up for ANA. Allergies egg Allergy (Verified 04/01/23 14:12) Vomiting HPI HPI Comments History of Present Illness Details 22 y/o male patient presents for follow up of sleep study. The home sleep study result was mild degree of sleep apnea. The AHI was 5/hr and oxygen eleazar was 90%. Pt reports disrupted sleep, frequent arousals, and only can slee[ 3-4 hrs. He continues to endorse daytime sleepiness and wants to try CPAP. [facility] Medical History No pertinent past medical history Surgical History No pertinent past surgical history Social History Household Members: Family Both parents involved: No Caregiver staying overnight: No Housing: House Are you a primary resident care coordinator to a significant other at home: No Do you presently have visiting nurse or other home services: No 75 years or older and lives alone: No Alcohol intake: never Patient Tobacco Use Status: Never used Tobacco e-Cigarette/Vaping Use: Never Used Second Hand Smoke Exposure: No Special warren needs: No Agree to transfusion: Yes service: Yes Current occupational status: employed Sexual orientation: Straight/Heterosexual Gender identity: Male Cognitive needs: No Hearing needs: No Vision needs: No Review of Systems Const All systems reviewed & are unremarkable except as noted in HPI and below ENT Reports Normal hearing present Neuro Reports Normal hearing present Physical Exam Vital Signs: Last Vital Signs Pulse 77 04/01/23 14:10 BP 122/80 04/01/23 14:10 Pulse Ox 98 04/01/23 14:10 Oxygen Delivery Method Room Air 04/01/23 14:10 BMI result Body Mass Index 34.9 Const General: cooperative Nutritional Appearance: obese Orientation/consciousness: patient oriented x3 Limitations: no limitations HEENT Throat: Yes other (mallampati grade 4) Neck Neck: Yes full ROM and Yes supple Resp Effort & Inspection: normal respiratory effort and able to speak in complete sentences Neuro General: patient oriented x3, gait normal and moves all extremities Cranial nerves: Yes Bilaterally intact EOM present, Yes Normal facial strength present, Yes Midline tongue present, Yes Symmetric palate elevation present, Yes Normal hearing present, Yes Ability to bilaterally rotate head present and Yes Ability to bilaterally elevate shoulders present Cognition (Neuro): normal cognition Gait exam (Neuro): Normal gait present Motor exam (neuro): 5/5 motor strength present throughout, Pronator motor function not present and no tremor noted Psych Appearance: grossly normal Mental Status: mental status grossly normal Speech and movement: Normal speech and movement present Affect: normal affect Assessment & Plan Assessment & Plan (1) ANA (obstructive sleep apnea): Comment: Mild degree of sleep apnea. The AHI was 5/hr and oxygen eleazar was 90%. Code(s): G47.33 - Obstructive sleep apnea (adult) (pediatric) Plan Start APAP [id number], pt will have benefit from using CPAP for mild degree of sleep apnea. Stressed compliance, use CPAP nightly and more than 4 hrs. Will check labs, vitamin B12 and D. Wt reduction advised. Orders: Orders Vitamin B12 and Folate Today R53.83 - Other fatigue Vitamin D 25-OH (D2 and D3) Today E55.9 - Vitamin D deficiency, unspecified, R53.83 - Other fatigue Coding Level of Care Code Est Pt Level 3 (72853) Diagnoses ANA (obstructive sleep apnea) G47.33
== END 2023-04-01 14:43 | disposition home or self-care (01) ==
PROVIDERS: PCP Family Medicine; Visit Provider Nurse Practitioner Family
DX: G47.33 Obstructive sleep apnea (adult) (pediatric) (principal)
CPT/HCPCS: 99213

== ENCOUNTER → 2023-04-01 14:05 | Outpatient (BNVA) | payer OTHER, SELFPAY | PROVIDERS: PCP Family Medicine; Visit Provider Nurse Practitioner Family | DX: G47.33 Obstructive sleep apnea (adult) (pediatric) (principal) | CPT/HCPCS: 99212 ==

== ENCOUNTER 2023-05-25 06:57 | Outpatient (REF) | payer OTHER, SELFPAY ==
[2023-05-25 11:20] LABS: MANUAL DIFF FLAG NO
[2023-05-25 11:41] LABS: Basophils Absolute Auto 0.1 X10*3/uL (0.0-0.2); Basophils Percent Auto 0.7 % (0-2); Eosinophils Absolute Auto 0.1 X10*3/uL (0.0-0.4); Eosinophils Percent Auto 1.1 % (0-4); Hematocrit 42.6 % (42.0-52.0); Hemoglobin 14.6 g/dl (14.0-18.0); Imm Gran Abs Auto 0.02 X10*3/uL (0.00-0.03); Imm Gran Pct Auto 0.3 % (0.0-0.4); Lymphocytes Absolute Auto 2.9 X10*3/uL (1.2-4.9); Lymphocytes Percent Auto 39.1 % (20-40); Mean Corpuscular HGB Conc 34.3 g/dl (31.0-36.0); Mean Corpuscular Hemoglobin 30.5 pg (27.0-33.0); Mean Corpuscular Volume 88.9 fL (80.0-98.0); Mean Platelet Volume 10.3 fL (9.4-12.4); Monocytes Absolute Auto 0.6 X10*3/uL (0.1-1.2); Monocytes Percent Auto 8.4 % (2-11); Neutrophils Absolute Auto 3.7 x10*3/uL (2.0-8.3); Neutrophils Percent Auto 50.4 % (45-73); Platelet Count 252 X10*3/uL (160-400); Red Blood Count 4.79 X10*6/uL (4.60-5.80); Red Cell Distribution Width 12.9 % (11.0-16.0); White Blood Count 7.3 X10*3/uL (4.8-10.8)
[2023-05-25 12:09] LABS: Alanine Aminotransferase 43 U/L (0-40); Alkaline Phosphatase 83 U/L (39-117); Anion Gap 13 (12-20); Aspartate Amino Transferase 24 U/L (5-37); Bilirubin Total 0.4 mg/dL (0.0-1.0); Blood Urea Nitrogen 11 mg/dL (9-16); Calcium 9.1 mg/dL (8.4-10.2); Carbon Dioxide 25 mmol/L (22-29); Chloride 105 mmol/L (96-108); Cholesterol 221 mg/dL (<200); Estimated Glomerular Filt Rate > 60; Glucose Fasting 115 mg/dL (60-99); Glucose Random 116 mg/dL (60-115); HDL Cholesterol 32 mg/dL (>40); LDL Cholesterol Calculated 145 mg/dL (<100); Potassium 3.8 mmol/L (3.3-5.1); Sodium 139 mmol/L (135-145); Total Protein 7.7 g/dL (6.5-8.0); Triglycerides 221 mg/dL (<150)
[2023-05-25 12:33] LABS: Folate 8.6 ng/mL (> or = 4.0); Vitamin B12 379 pg/mL (200-900)
[2023-05-29 16:27] LABS: Vitamin D 25-OH, D2 <4 ng/mL; Vitamin D 25-OH, D3 19 ng/mL; Vitamin D 25-OH, Total 19 ng/mL (30-100)
[2023-05-31 11:39] LABS: Testosterone, Free 94.9 pg/mL (35.0-155.0); Testosterone, Total 350 ng/dL (250-1100)
== END 2023-05-25 06:58 | disposition home or self-care (01) ==
LOC: HO.HMGCLDS 06:57
PROVIDERS: Nurse Practitioner Family; PCP Family Medicine; Visit Provider Family Medicine
DX: Z00.00 Encounter for general adult medical examination without abnormal findings (principal); E78.5 Hyperlipidemia, unspecified; E55.9 Vitamin D deficiency, unspecified; R53.83 Other fatigue
CPT/HCPCS: 36415; 80053; 80061; 82306; 82607; 82746; 84402; 84403; 85025

== ENCOUNTER 2023-05-28 14:22 | Outpatient (AMB) | payer OTHER, SELFPAY ==
[2023-05-28 14:25] VITALS: BP 118/72; PULSE 86; O2SAT 99; BMI 36.2
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
== END 2023-05-28 14:53 | disposition home or self-care (01) ==
PROVIDERS: PCP Family Medicine; Visit Provider Family Medicine
DX: E78.5 Hyperlipidemia, unspecified (principal); R74.01 Elevation of levels of liver transaminase levels; Z68.36 Body mass index [BMI] 36.0-36.9, adult; E66.9 Obesity, unspecified; G47.33 Obstructive sleep apnea (adult) (pediatric); M54.9 Dorsalgia, unspecified
CPT/HCPCS: 99214

== ENCOUNTER 2023-06-20 09:29 | Outpatient (REF) | payer OTHER, SELFPAY ==
--- NOTE | ~2023-06-20 | US_ITS ---
EXAMINATION: US ABDOMEN LIMITED WITH LIVER ELASTOGRAPHY CLINICAL INFORMATION: Elevated liver transaminase levels. COMPARISON: CT abdomen and pelvis dated 06/13/2021. TECHNIQUE: Real-time imaging of the abdominal viscera. Noninvasive ultrasound liver fibrosis assessment is performed using Jc ElastPQ point quantification shear wave elastography (2D-SWE) with a C5-2 MHz transducer. Multiple elastography samples are obtained. FINDINGS: PANCREAS: Normal. The visualized pancreatic head and body are normal in appearance. The remainder of the pancreas is obscured from visualization by the overlying bowel gas. LIVER: The liver demonstrates normal size, contour and mild increase in echogenicity. No focal lesion or intrahepatic biliary duct dilatation. The right lobe measures 15.6 cm in length. The left lobe measures 9.7 cm in length. Portal flow is towards the liver (hepatopetal). Shear wave liver elastography median stiffness is 1.09 m/s (reference: normal median stiffness is 1.3 m/s or less). IQR/median stiffness to assess sampling precision is 0.11 (reference: good quality data set is IQR/median stiffness of 0.15 or less). GALLBLADDER: Normal. The gallbladder is physiologically distended without evidence of stones, sludge, polyps, wall thickening or pericholecystic fluid. COMMON BILE DUCT: Normal in caliber measuring 0.4 cm in diameter. RIGHT KIDNEY: Normal. No hydronephrosis. No renal calculi or focal parenchymal lesions. The kidney measures 10.2 cm in maximum dimension. FREE FLUID: None. US/US abdomen ramirez w elastography IMPRESSION: 1. There is mild generalized increase in hepatic echotexture, consistent with fatty infiltration or hepatocellular disease. Please correlate clinically. No focal hepatic mass or intrahepatic biliary dilatation is seen. 2. Liver elastography: Measurements are consistent with a high probability of normal liver stiffness. REFERENCE: Society of Radiologists in Ultrasound Liver Stiffness Thresholds (2020): LIVER STIFFNESS THRESHOLDS: *Liver Stiffness equal or less than 1.3 m/s: High probability of being normal. *Liver Stiffness less than 1.7 m/s: In the absence of other known clinical signs, rules out compensated advanced chronic liver disease. *Liver Stiffness 1.7-2.1 m/s: Suggestive of compensated advanced chronic liver disease but need further test for confirmation. *Liver Stiffness over 2.1 m/s: Rules in compensated advanced chronic liver disease. *Liver Stiffness over 2.4 m/s: Suggestive of clinically significant portal hypertension. QUALITY OF DATA SET: *IQR/Median value equal or less than 0.15 implies a quality data set. *IQR/Median value over 0.15 implies a poor quality data set. SIGNIFICANT CHANGE FROM PRIOR EXAM: Significant change if liver stiffness measurement is 10% or greater from prior exam. OTHER CONSIDERATIONS: The stage of liver fibrosis may be overestimated in the setting of acute hepatitis, liver inflammation, elevated liver function tests, hepatic vascular congestion, obstructive cholestasis, non-fasting state, and infiltrative diseases such as amyloidosis and lymphoma. In some patients with NAFLD, the liver stiffness thresholds for compensated advanced chronic liver disease may be lower. In causes other than viral hepatitis and NAFLD, liver stiffness thresholds are not well established.
== END 2023-06-20 09:30 | disposition home or self-care (01) ==
LOC: HO.US 09:29
PROVIDERS: PCP Family Medicine; Visit Provider Family Medicine
DX: R74.01 Elevation of levels of liver transaminase levels (principal)
CPT/HCPCS: 76705; 76981

== ENCOUNTER 2023-08-01 14:04 | Outpatient (AMB) | payer OTHER, SELFPAY ==
--- NOTE | 2023-08-01 14:07 | MHC.OFFVIS ---
Intake Vital Signs 08/01/23 14:12 Height 5 ft 11 in Weight 265 lb 2 oz BMI 37.0 BP 124/80 Blood Pressure Location Lt brachial Position Sitting Pulse 89 Pulse Source Pulse Oximeter Pulse Oximetry (%) 99 Oxygen Delivery Method Room Air Intake Visit Reasons: 4 mo f/u ANA Intake Note: Patient presents for 4 moths F/U. Allergies egg Allergy (Verified 08/01/23 14:12) Vomiting HPI HPI Comments History of Present Illness Details 22 y/o male patient presents for follow up of sleep study. The home sleep study result was mild degree of sleep apnea. The AHI was 5/hr and oxygen eleazar was 90%. APAP at [id number] ordered to [facility]. However, he missed phone call and did not call back for schedule for CPAP, and the order was canceled. Pt reports disrupted sleep, frequent arousals, and only can slee[ 3-4 hrs. He continues to endorse daytime sleepiness and wants to try CPAP. [facility] Medical History No pertinent past medical history Surgical History No pertinent past surgical history Social History Household Members: Family Both parents involved: No Caregiver staying overnight: No Housing: House Are you a primary healthcare administration intern to a significant other at home: No Do you presently have visiting nurse or other home services: No 75 years or older and lives alone: No Alcohol intake: never Patient Tobacco Use Status: Never used Tobacco e-Cigarette/Vaping Use: Never Used Second Hand Smoke Exposure: No Special warren needs: No Agree to transfusion: Yes service: Yes Current occupational status: employed Sexual orientation: Straight/Heterosexual Gender identity: Male Cognitive needs: No Hearing needs: No Vision needs: No Review of Systems Const All systems reviewed & are unremarkable except as noted in HPI and below ENT Reports Normal hearing present Neuro Reports Normal hearing present Physical Exam Vital Signs: Last Vital Signs Pulse 89 08/01/23 14:12 BP 124/80 08/01/23 14:12 Pulse Ox 99 08/01/23 14:12 Oxygen Delivery Method Room Air 08/01/23 14:12 BMI result Body Mass Index 37.0 Const General: cooperative Nutritional Appearance: obese Orientation/consciousness: patient oriented x3 Limitations: no limitations HEENT Throat: Yes other (mallampati grade 4) Neck Neck: Yes full ROM and Yes supple Resp Effort & Inspection: normal respiratory effort and able to speak in complete sentences Neuro General: patient oriented x3, gait normal and moves all extremities Cranial nerves: Yes Bilaterally intact EOM present, Yes Normal facial strength present, Yes Midline tongue present, Yes Symmetric palate elevation present, Yes Normal hearing present, Yes Ability to bilaterally rotate head present and Yes Ability to bilaterally elevate shoulders present Cognition (Neuro): normal cognition Gait exam (Neuro): Normal gait present Motor exam (neuro): 5/5 motor strength present throughout, Pronator motor function not present and no tremor noted Psych Appearance: grossly normal Mental Status: mental status grossly normal Speech and movement: Normal speech and movement present Affect: normal affect Assessment & Plan Assessment & Plan (1) ANA (obstructive sleep apnea): Comment: Mild degree of sleep apnea. The AHI was 5/hr and oxygen eleazar was 90%. Code(s): G47.33 - Obstructive sleep apnea (adult) (pediatric) Plan Start APAP [id number], pt will have benefit from using CPAP for mild degree of sleep apnea. [facility] information given to patient to call to schedule for CPAP. Stressed compliance, use CPAP nightly and more than 4 hrs. Wt reduction advised. Coding Level of Care Code Est Pt Level 3 (11159) Diagnoses ANA (obstructive sleep apnea) G47.33
[2023-08-01 14:12] VITALS: BP 124/80; PULSE 89; O2SAT 99; BMI 37.0
== END 2023-08-01 14:24 | disposition home or self-care (01) ==
PROVIDERS: PCP Family Medicine; Visit Provider Nurse Practitioner Family
DX: G47.33 Obstructive sleep apnea (adult) (pediatric) (principal)
CPT/HCPCS: 99213

== ENCOUNTER → 2023-08-01 14:04 | Outpatient (BNVA) | payer OTHER, SELFPAY | PROVIDERS: PCP Family Medicine; Visit Provider Nurse Practitioner Family | DX: G47.33 Obstructive sleep apnea (adult) (pediatric) (principal) | CPT/HCPCS: 99212 ==

== ENCOUNTER 2024-02-04 13:57 | Outpatient (AMB) | payer OTHER, SELFPAY ==
--- NOTE | 2024-02-04 13:59 | MHC.OFFVIS ---
Vital Signs 02/04/24 14:03 Height 5 ft 11 in Weight 232 lb BMI 32.4 BP 126/74 Blood Pressure Location Rt brachial Position Sitting Pulse 62 Pulse Source Pulse Oximeter Pulse Oximetry (%) 98 Oxygen Delivery Method Room Air Intake Visit Reasons: Follow up Intake Note: Patient presents for a 6 mon follow up. ( ANA ) Patient never set up Cpap. Director Of Sales Required: No Accompanied by: Self / Same As Patient Allergies egg Allergy (Verified 02/04/24 14:22) Vomiting HPI Comments Details: 23 y/o male patient presents for follow up of sleep study. The home sleep study result was mild degree of sleep apnea. The AHI was 5/hr and oxygen eleazar was 90%. He did not get his CPAP yet. APAP at [id number] ordered to [facility]. However, he missed phone call and did not call back for schedule for CPAP, and the order was canceled. Pt reports disrupted sleep, frequent arousals, and only can sleep 3-4 hrs. He continues to endorse daytime sleepiness and wants to try CPAP. [facility] Medical History No pertinent past medical history Surgical History No pertinent past surgical history Social History Household Members: Family Both parents involved: No Caregiver staying overnight: No Housing: House Are you a primary personal carer to a significant other at home: No Do you presently have visiting nurse or other home services: No 75 years or older and lives alone: No Alcohol intake: never Patient Tobacco Use Status: Never used Tobacco e-Cigarette/Vaping Use: Never Used Second Hand Smoke Exposure: No Special warren needs: No Agree to transfusion: Yes service: Yes Current occupational status: employed Sexual orientation: Straight/Heterosexual Gender identity: Male Cognitive needs: No Hearing needs: No Vision needs: No Review of Systems ENT Reports Normal hearing present Neuro Reports Normal hearing present Physical Exam Vital Signs: Last Vital Signs Pulse 62 02/04/24 14:03 BP 126/74 02/04/24 14:03 Pulse Ox 98 02/04/24 14:03 Oxygen Delivery Method Room Air 02/04/24 14:03 BMI result Body Mass Index 32.4 Const General: cooperative Nutritional Appearance: obese Orientation/consciousness: patient oriented x3 Limitations: no limitations HEENT Throat: Yes other (mallampati grade 4) Neck Neck: Yes full ROM and Yes supple Resp Effort & Inspection: normal respiratory effort and able to speak in complete sentences Neuro General: patient oriented x3, gait normal and moves all extremities Cranial nerves: Yes Bilaterally intact EOM present, Yes Normal facial strength present, Yes Midline tongue present, Yes Symmetric palate elevation present, Yes Normal hearing present, Yes Ability to bilaterally rotate head present and Yes Ability to bilaterally elevate shoulders present Cognition (Neuro): normal cognition Gait exam (Neuro): Normal gait present Motor exam (neuro): 5/5 motor strength present throughout, Pronator motor function not present and no tremor noted Psych Appearance: grossly normal Mental Status: mental status grossly normal Speech and movement: Normal speech and movement present Affect: normal affect Assessment & Plan Assessment & Plan (1) ANA (obstructive sleep apnea): Comment: Mild degree of sleep apnea. The AHI was 5/hr and oxygen eleazar was 90%. Code(s): G47.33 - Obstructive sleep apnea (adult) (pediatric) Category: Medical Plan Start APAP [id number], pt will have benefit from using CPAP for mild degree of sleep apnea. [facility] information given to patient to call to schedule for CPAP. Stressed compliance, use CPAP nightly and more than 4 hrs. Wt reduction advised. Coding Level of Care Code Est Pt Level 4 (36286) Diagnoses ANA (obstructive sleep apnea) G47.33
[2024-02-04 14:03] VITALS: BP 126/74; PULSE 62; O2SAT 98; BMI 32.4
== END 2024-02-04 14:37 | disposition home or self-care (01) ==
PROVIDERS: PCP Family Medicine; Visit Provider Psychiatry & Neurology Neurology
DX: G47.33 Obstructive sleep apnea (adult) (pediatric) (principal)
CPT/HCPCS: 99214

== ENCOUNTER → 2024-02-04 13:57 | Outpatient (BNVA) | payer OTHER, SELFPAY | PROVIDERS: PCP Family Medicine; Visit Provider Psychiatry & Neurology Neurology | DX: G47.33 Obstructive sleep apnea (adult) (pediatric) (principal) | CPT/HCPCS: 99212 ==

== ENCOUNTER 2024-05-08 13:41 | Outpatient (AMB) | payer OTHER, SELFPAY ==
[2024-05-08 13:41] VITALS: BP 120/80; PULSE 76; O2SAT 99; BMI 35.1
--- NOTE | 2024-05-08 13:41 | A.OFFPC_ITS ---
Vital Signs 05/08/24 13:41 Height 5 ft 11 in Weight 251 lb 8 oz BMI 35.1 BP 120/80 Blood Pressure Location Rt brachial Position Sitting Pulse 76 Pulse Source Pulse Oximeter Pulse Oximetry (%) 99 Intake Visit Reasons: Medication review Ocular Care Technologist Required: No Allergies egg Allergy (Verified 05/08/24 13:42) Vomiting Tobacco use date assessed: 05/08/24 Dental Screening Dental Screen Date: 05/08/24 Did you have a dental visit in the last 12 months?: Yes Did you have a dental problem in the last 6 months where you did not have access to dental care?: No Was dental information given to patient?: Patient has dentist HPI Medication review HPI Details 23 y/o male presents to f/u chronic [facility] itions. [facility] Medical History No pertinent past medical history Surgical History No pertinent past surgical history Social History Household Members: Family Both parents involved: No Caregiver staying overnight: No Housing: House Are you a primary health care administrator to a significant other at home: No Do you presently have visiting nurse or other home services: No 75 years or older and lives alone: No Alcohol intake: never Patient Tobacco Use Status: Never used Tobacco e-Cigarette/Vaping Use: Never Used Second Hand Smoke Exposure: No Special warren needs: No Agree to transfusion: Yes service: Yes Current occupational status: employed Sexual orientation: Straight/Heterosexual Gender identity: Male Cognitive needs: No Hearing needs: No Vision needs: No Questionnaire PHQ-9 Over the last 2 weeks, how often have you been bothered by any of the following problems? 1. Little interest or pleasure in doing things: not at all 2. Feeling down, depressed, or hopeless: not at all 3. Trouble falling or staying asleep, or sleeping too much: not at all 4. Feeling tired or having little energy: not at all 5. Poor appetite or overeating: not at all 6. Feeling bad about yourself - or that you are a failure or have let yourself or your family down: not at all 7. Trouble concentrating on things, such as reading the newspaper or watching t elevision: not at all 8. Moving or speaking so slowly that other people could have noticed. Or the opposite - being so fidgety or restless that you have been moving around a lot more than usual: not at all 9. Thoughts that you would be better off or of hurting yourself in some way: not at all Total score: 0 Depression Screening Interpretation: Negative Depression Screening Done: Yes 23594 - PHQ-9 Billing: Yes Source: Developed by Drs. Dong Naik, Lisa Toney, Vishnu Vaz and colleagues, with an educational george from [employer]. Thrive Questionnaire Date Thrive assessed: 05/08/24 I am a: Patient What is your living situation today?: I have a steady place to live Within the past 12 months, did the food you bought not last and you didn't have the money to get more?: Never true Within the past 12 months, did you worry whether your food would run out before you got money to buy more?: Never true Do you have trouble paying for medicines?: No Do you have trouble getting transportation to medical appointments?: No Do you have trouble paying your heating and electricity bill?: No Do you have trouble taking care of your child, family member or friend?: No Do you have trouble with day-to-day activities such as bathing, preparing meals, shopping, managing finances, etc.?: No Are you currently unemployed and looking for a job?: No Are you interested in more education?: Yes THRIVE Score: 0 AUDIT C Alcohol Use Questionnaire (AUDIT-C) 1. How often do you have a drink containing alcohol?: Monthly or less 2. How many drinks containing alcohol do you have on a typical day when you are drinking?: 1 or 2 3. How often do you have six or more drinks on one occasion?: Never Total Score: 1 Score Reviewed/Action Taken: Yes SHIVA-7 AMB Questionnaire SHIVA-7 Date SHIVA - 7 assessed: 05/08/24 Feeling nervous, anxious, or on edge: 0 = Not at all Not being able to stop or control worryin = Not at all Worrying too much about different things: 0 = Not at all Trouble relaxin = Not at all Being so restless that it is hard to sit still: 0 = Not at all Becoming easily annoyed or irritable: 0 = Not at all Feeling afraid as if something awful might happen: 0 = Not at all Total SHIVA-7 score (0-4 normal; 5-9 mild; 10-14 moderate; 15-21 severe): 0 Source: Developed by Drs. Dong Naik, Lisa Toney, Vishnu Vaz and colleagues, with an educational george from [employer]. SHIVA-7 Assessment Billing SHIVA-7 Assessment Tool: SHIVA-7 Assessment 40653 Review of Systems Const Denies chills, Denies fatigue, Denies fever(s), Denies headache(s) and Denies weakness ENT Denies dizziness and Denies headache(s) Card Denies chest pain, Denies lightheadedness, Denies dyspnea and Denies other (Palpitations) Resp Denies cough, Denies dyspnea, Denies wheezing and Denies other ( shortness of breath) Musc Denies numbness and Denies tingling Neuro Denies dizziness, Denies headache(s), Denies numbness, Denies tingling, Denies paresthesias and Denies weakness Psych Denies anxiety and Denies depression Endo Denies fatigue Aller/Immun Denies wheezing Physical exam (Primary Care) Vital Signs: Last Vital Signs Pulse 76 05/08/24 13:41 BP 120/80 05/08/24 13:41 Pulse Ox 99 05/08/24 13:41 BMI result Body Mass Index 35.1 Tobacco/Smoking Status: Tobacco use Status Tobacco use date assessed 05/08/24 05/08/24 13:43 Patient Tobacco Use Status Never used Tobacco 05/08/24 13:43 e-Cigarette/Vaping Use Never Used 05/08/24 13:43 PHQ-9: PHQ-9 Score PHQ-9: Total score 0 05/08/24 13:50 Depression Screening Interpretation: Negative Thrive Assessment: Date of Thrive Assessment Date Thrive assessed 05/08/24 05/08/24 13:43 Const General: no acute distress and well developed Nutritional Appearance: well nourished Orientation/consciousness: patient oriented x3 HENMT Head: Yes normocephalic and Yes atraumatic Eyes General: appearance normal, both eyes and all related structures Pupils: Equal, round and reactive pupils present EOM: EOMs intact bilaterally Resp Effort & Inspection: normal respiratory effort Auscultation: clear to auscultation bilaterally Cardio Rate: regular rate Rhythm: regular rhythm Heart sounds: S1 normal heart sound present, S2 normal heart sound present, no gallops, no murmurs and no rubs Neuro General: patient oriented x3 and gait normal Cranial nerves: Yes Equal, round and reactive pupils present Psych Affect: normal affect Coding Level of Care Code Est Pt Level 3 (17397) Diagnoses Hyperlipidemia E78.5 Elevated ALT measurement R74.01 Obesity (BMI 30-39.9) E66.9 Additional Codes SHIVA-7 Assessment Billing - SHIVA-7 Assessment Tool: SHIVA-7 Assessment 77309 ([id number]) PHQ-9 - 60765 - PHQ-9 Billing: Yes ([id number]) Assessment & Plan Assessment & Plan (1) Hyperlipidemia: Code(s): E78.5 - Hyperlipidemia, unspecified Category: Medical Plan: Lipids?have?been?elevated. He?had?been?on?atorvastatin?but?has?not?been?taking?this. Will?recheck?lipids?and?can?follow-up?to?determine?resuming?of ?atorvastatin?and?adjusting?dose?as?needed (2) Elevated ALT measurement: Code(s): R74.01 - Elevation of levels of liver transaminase levels Category: Medical Plan: Patient?has?been?working?on?weight?loss?and?had?lost?significant?weight?but?gain ed?it?back. Ultrasound?earlier?this?year?showed??hepatic?steatosis?but elastography?was?normal Continue?working?on?weight?loss-see?below (3) Obesity (BMI 30-39.9): Code(s): E66.9 - Obesity, unspecified Category: Medical Plan: Had?referred?patient?several?times?to?weight?management We?discussed?today?that?it?is?often?hard?to?get?into?a?weight?management?program .??There?are?programs For-profit?but?patient?says?he?does?not?have?enough?money?for?these. Some?these?programs?subsidized?with?a?note?from?a?doctor?and?I?am?to?provide?him ?with?a?letter?if?he?by?the?program?that?will?do?so. Meantime,?will?refer?back?to?weight?management?as?had?not?contac alyssa?them?back?when?sometime?ago. Patient?also?inquires?about?medications?such?as?Ozempic. Rechecking?his?lab?work?which?can?be?reviewed?at?his?physical.??Subsequent?to?th is,?we?can?set?up?an?appointment?to?discuss?medications?as?Ozempic Orders: Orders Hemoglobin A1c Today R73.01 - Impaired fasting glucose Microalbumin, Random (w Creat) Today I10 - Essential (primary) hypertension, R73.01 - Impaired fasting glucose TSH reflex Free T4 Today R40.0 - Somnolence, Z00.00 - Encounter for general adult medical examination without abnormal findings UA and rflx microscopic Today R73.01 - Impaired fasting glucose, Z00.00 - Encounter for general adult medical examination without abnormal findings Comprehensive [place]. Panel Fast Today R74.01 - Elevation of levels of liver transaminase levels, Z00.00 - Encounter for general adult medical examination without abnormal findings LDL Cholesterol Direct Today E78.5 - Hyperlipidemia, unspecified Lipid Panel Today E78.5 - Hyperlipidemia, unspecified, Z00.00 - Encounter for general adult medical examination without abnormal findings
--- OUTSIDE RECORDS SUMMARY | 2024-05-08 13:43 | XMS_ITS | Continuity of Care Document ---
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 It does not include entries that were removed or entered in error. Problem Status Onset Date Problem Type Date of Resolution Comme nts Source Encounter for screening for other viral diseases Inactive 07/28/2020 Condition DoD Medications Combined list of outpatient medications from Department of Defense and [facility] facilities.Medications provided include 1) outpatient medications from the last 15 months, and 2) patient-reported medications. Medication Details Route Status Patient Instructions Prescription Expires Prescription Number Last Dispense Date Ordering Provider Order Date Order Qty Source ATORVASTATI N CALCIUM (atorvastat in calcium), 40 MG, TABLET, ORAL, BIOCON PHARMA I, 1000 ea. BOTTLE Active [id number] 2023 90 Pharmac y Data Transac tion Service Facilit y CYCLOBENZAP RINE HCL (cyclobenza joselin HCl), 10 MG, TABLET, ORAL, TEVA [place], 1000 ea. BOTTLE Active [id number] 4 2023 28 Pharmac y Data Transac tion Service Facilit y Allergies, Adverse Reactions, Alerts Combined list of allergies from Department of Defense and [facility] facilities. It does not include entries that were removed or entered in error. Substance Category Reaction Severity Reaction type Status Date Reported Comments Source Eggs Food allergy throws up Moderate Active 0086C-ACH [facility] No Known Allergies Drug allergy (disorder) active 12/31/2018 [facility] Immunizations Combined list of available immunizations from the Department of Defense and Veterans Affairs facilities. Immunization Series Date Given Administered By Site Reaction Lot Number CVX Code Drug [place] Tower Loader Status Comments Source influenza, injectable, quadrivalent 2020 [id number] Seqirus complet ed influenza , injectabl e, quadrival ent 03/09/21 Given Ambulat ory Pharmac y influenza, injectable, quadrivalent, contains preservative 1 2020 [id number] 158 Seqirus (SEQ) comple t ed influenza , injectabl e, quadrival ent, contains preservat alexander DoD COVID Vaccine Pfizer 2020 [id number] PFIZER complet ed COVID Vaccine Pfizer 02/20/21 Given Ambulat ory Pharmac y COVID Vaccine Pfizer 2020 [id number] PFIZER complet ed COVID Vaccine Pfizer 01/24/21 Given Ambulat ory Pharmac y SARS-COV-2 (COVID-19) vaccine, mRNA, spike protein, LNP, preservative free, 30 mcg/0.3mL dose 1 2020 [id number] Pfizer, Inc (PFR) complet ed SARS-COV- 2 (COVID-19 ) vaccine, mRNA, spike protein, LNP, preservat alexander free, 30 mcg/0.3mL dose DoD influenza, injectable, quadrivalent- pf 2019 [id number] 150 Unknown complet ed influenza , injectabl e, quadrival ent-pf 02/13/20 Given Ambulat ory Pharmac y Influenza, injectable, quadrivalent, preservative free 1 2019 [id number] 150 Unknown (UNK) comple t ed Influenza , injectabl e, quadrival ent, preservat alexander free DoD measles/mumps /rubella virus vaccine 2019 [id number] Merck & Company Inc complet ed measles/m umps/rube lla virus vaccine 05/15/19 Given Ambulat ory Pharmac y hepatitis A adult vaccine 2019 [id number] 52 GlaxoSmithKli ne complet ed hepatitis A adult vaccine 05/15/19 Given Ambulat ory Pharmac y measles, mumps and rubella virus vaccine 2 2019 [id number] Merck (MSD) complet ed measles, mumps and rubella virus vaccine DoD hepatitis A vaccine, adult dosage 2 2019 [id number] [address] [facility] (SKB) complet ed hepatitis A vaccine, adult dosage DoD influenza, injectable, quadrivalent- pf 2018 zzLef t Arm [id number] 150 Seqirus complet ed influenza , injectabl e, quadrival ent-pf 03/18/19 Given Ambulat ory Pharmac y Influenza, injectable, quadrivalent, preservative free 1 2018 LUISA JOHANNE Rona [id number] 150 Seqirus (SEQ) complet ed Influenza , injectabl e, quadrival ent, preservat alexander free DoD varicella virus vaccine 2018 [id number] 21 Merck & Company Inc complet ed varicella virus vaccine 11/18/18 Given Ambulat ory Pharmac y varicella virus vaccine 2 2018 [id number] 21 Merck (MSD) complet ed varicella virus vaccine DoD tetanus, diphtheria, acellular pertu is 2018 [id number] 115 GlaxoSmithKli ne complet ed tetanus, diphtheri a, acellular pertussis 10/17/18 Given Ambulat ory Pharmac y poliovirus vaccine, inactivated 2018 [id number] 10 sanofi pasteur complet ed polioviru s vaccine, inactivat ed 10/17/18 Given Ambulat ory Pharmac y adenovirus vaccine, live 2018 [id number] 143 Teva Pharmaceutica ls complet ed adenoviru s vaccine, live 10/17/18 Given Ambulat ory Pharmac y measles/mumps /rubella virus vaccine 2018 [id number] 03 Merck & Company Inc complet ed measles/m umps/rube lla virus vaccine 10/17/18 Given Ambulat ory Pharmac y meningococcal A,C,Y,W-135 (MCV4P) 2018 [id number] 114 sanofi pasteur complet ed meningoco ccal A,C,Y,W-1 35 (MCV4P) 10/17/18 Given Ambulat ory Pharmac y varicella virus vaccine 2018 [id number] 21 Merck & Company Inc complet ed varicella virus vaccine 10/17/18 Given Ambulat ory Pharmac y hepatitis A adult vaccine 2018 [id number] 52 GlaxoSmithKli ne complet ed hepatitis A adult vaccine 10/17/18 Given Ambulat ory Pharmac y measles, mumps and rubella virus vaccine 1 2018 [id number] 03 Merck (MSD) complet ed measles, mumps and rubella virus vaccine DoD poliovirus vaccine, inactivated 1 2018 [id number] 10 Sanofi Pasteur ([facility]) complet ed polioviru s vaccine, inactivat ed DoD varicella virus vaccine 1 2018 [id number] 21 Merck (MSD) complet ed varicella virus vaccine DoD hepatitis A vaccine, adult dosage 1 2018 [id number] 52 SmithKline (SKB) complet ed hepatitis A vaccine, adult dosage DoD meningococcal polysaccharid e (groups A, C, Y and W-135) diphtheria toxoid conjugate vaccine (MCV4P) 1 2018 [id number] 114 Sanofi Pasteur ([facility]) complet ed meningoco ccal polysacch aride (groups A, C, Y and W-135) diphtheri a toxoid conjugate vaccine (MCV4P) DoD tetanus toxoid, reduced diphtheria toxoid, and acellular pertu is vaccine, adsorbed 1 2018 [id number] 115 SmithKline (SKB) complet ed tetanus toxoid, reduced diphtheri a toxoid, and acellular pertussis vaccine, adsorbed DoD Adenovirus, type 4 and type 7, live, oral 1 2018 [id number] (BRR) complet ed Adenoviru s, type 4 and type 7, live, oral DoD mumps virus vaccine 1 2018 UNK 07 Unknown (UNK) Not Given mumps virus vaccine DoD hepatitis B vaccine, adult dosage 2018 UNK 43 Unknown (UNK) Not Given hepatitis B vaccine, adult dosage DoD Vital Signs Combined list of inpatient and outpatient Vital Signs from Department of Defense and Veterans Affairs, ranging from 12 months to all on record, depending upon the facility. Vital Sign Value Date Comments Source No data available for this section Ambulatory Pharmacy Encounters Combined list of: 1) Encounters from Department of Veterans Affairs facilities going back up to thelast 18 months. 2) Encounters from the Department of Defense facilities going back up to 280 months. Location Location Details Encounter Type Encounter Number Reason For Visit Attending Provider ADM Date DC Date Status Disposition Source [facility] Physical Therapy) OUTPATIENT [id number] Notes Entered by: ROBERT WONG 28 Oct 2018 1346 ------- ------- ------- ------- -- Knee pain JOSE ROGER 10/28 Released with Work/Duty Limitations [facility] Physica l Therapy ) [facility]) OUTPATIENT [id number] Notes Entered by: ROBERT WONG 31 Oct 2018 1300 ------- ------- ------- ------- -- Knee pain JOSE ROGER 10/31 Released with Work/Duty Limitations [employer] [employer] [facility] Physica l Therapy ) [facility] Primary Care) OUTPATIENT [id number] Notes Entered by: ILIANA TIRADO 18 Nov 2018 1135 ------- ------- ------- ------- -- IET IMM ROSA KYLE 11/18 Released w/o Limitations [employer] [facility](I EP Primary Care) [employer] Ambulator y) OUTPATIENT [id number] toe pain TANYA CONLEY 12/31 Released w/o Limitations [employer](T MC Ambulat ory) [facility](C Ambulator y) OUTPATIENT [id number] Notes Entered by: Lenny ESPINOSA 02 Jan 2019 0722 ------- ------- ------- ------- -- EMS weak and dizzy MOHAN ESTRADA 01/02 Released w/o Limitations [facility] [employer] [facility](T [facility] Ambulat ory) [facility](C Ambulator y) OUTPATIENT [id number] Notes Entered by: Asia ADKINS* 02 Jan 2019 0833 ------- ------- ------- ------- -- ekg read CORBIN ISSA 01/02 Released w/o Limitations [facility] Ambulat ory) [facility] Ambulator y) OUTPATIENT [id number] f/u UA MOHAN ESTRADA 01/05 Released w/o Limitations [facility](T [facility] Ambulat ory) [facility] Physical Therapy) OUTPATIENT [id number] Notes Entered by: ROBYN GRANADOS 16 Jan 2019 1127 ------- ------- ------- ------- -- I - right ankle pain and knee stiffne ss ROBYN MORRISINE 01/16 Released w/o Limitations [facility] Phys[facility] l Therapy ) [facility] C Flu Clinic) OUTPATIENT [id number] AMBROSIO PAIGE Domingo 03/18 Released w/o Limitations [facility] Flu [facility]) [facility] Primary Care) OUTPATIENT [id number] Notes Entered by: MACY DICKSON 24 Jun 2019 0741 ------- ------- ------- ------- -- ANA-JAI TRAN 06/24 Released w/o Limitations [facility](I Primary Care) [facility]) OUTPATIENT [id number] Notes Entered by: Brandie RED 08 Jul 2020 0658 ------- ------- ------- ------- -- NEDRA SKINNER 07/08 Released w/o Limitations [facility] Deploym ent Clinic) [facility] Hearing Program) OUTPATIENT [id number] Notes Entered by: BI OLIVA 08 Jul 2020 0844 ------- ------- ------- ------- -- ANNIE MURPHY 07/08 Released w/o Limitations [facility] ) Theater Facility OUTPATIENT [id number] Theater Provider 07/29 Released w/o Limitations Theater Facilit y [facility] De[facility]) OUTPATIENT [id number] Notes Entered by: Asia VALDES 06 Apr 2021 0951 ------- ------- ------- ------- -- KAYLAN PEARL 04/06 Released w/o Limitations [facility] De[facility]) [facility]) OUTPATIENT [id number] Notes Entered by: BI OLIVA 06 Apr 2021 1236 ------- ------- ------- ------- -- KIRK VENTURA HERO 04/06 Released w/o Limitations [facility] ) [facility] OUTPATIENT [id number] Notes Entered by: SENIA BROCK 14 Apr 2021 0750 ------- ------- ------- ------- -- LORAINE CARRANZA 04/14 [facility]ased w/o Limitations [facility] MEPS Outside Documentat ion Only [id number] 04/09 Discharge Disposition: Home or Self Care [facility] Between Visit [id number] 04/094 04/09 Discharge Disposition: Home or Self Care [facility] Procedures Combined list of: 1) Procedures from Department of Veterans Affairs facilities going back up to thelast 18 months, not all VA non-surgical procedures are included; 2) All procedures from the Department of Defense facilities. Procedure Procedure Type Code Date Perfomer Comments Sourc e No data available for this section Ambulato ry Pharmacy ADMINISTRATION OF PATIENT-FOCUSED HEALTH RISK ASSESSMENT INSTRUMENT (EG, HEALTH HAZARD APPRAISAL) WITH SCORING AND DOCUMENTATION, PER STANDARDIZED INSTRUMENT DoD PURE TONE AUDIOMETRY (THRESHOLD), AUTOMATED; AIR ONLY DoD ADMINISTRATION OF PATIENT-FOCUSED HEALTH RISK ASSESSMENT INSTRUMENT (EG, HEALTH HAZARD APPRAISAL) WITH SCORING AND DOCUMENTATION, PER STANDARDIZED INSTRUMENT DoD PURE TONE AUDIOMETRY (THRESHOLD), AUTOMATED; AIR ONLY DoD SCREENING TEST OF VISUAL ACUITY, QUANTITATIVE, BILATERAL [facility] VARICELLA VIRUS VACCINE (JOSEPHINE), LIVE, FOR SUBCUTANEOUS USE DoD IMMUNIZATION ADMINISTRATION (INCLUDES PERCUTANEOUS, INTRADERMAL, SUBCUTANEOUS, OR INTRAMUSCULAR INJECTIONS); 1 VACCINE (SINGLE OR COMBINATION VACCINE/TOXOID) [facility] THERAPEUTIC PROCEDURE, 1 OR MORE AREAS, EACH 15 MINUTES; THERAPEUTIC EXERCISES TO DEVELOP STRENGTH AND ENDURANCE, RANGE OF MOTION AND FLEXIBILITY [facility] ELECTROCARDIOGRAM, ROUTINE ECG WITH AT LEAST 12 LEADS; INTERPRETATION AND REPORT ONLY [facility] ELECTROCARDIOGRAM, ROUTINE ECG WITH AT LEAST 12 LEADS; TRACING ONLY, WITHOUT INTERPRETATION AND REPORT [facility] ADENOVIRUS VACCINE, TYPE 7, LIVE, FOR ORAL USE [facility] THERAPEUTIC PROCEDURE, 1 OR MORE AREAS, EACH 15 MINUTES; THERAPEUTIC EXERCISES TO DEVELOP STRENGTH AND ENDURANCE, RANGE OF MOTION AND FLEXIBILITY [facility] THERAPEUTIC PROCEDURE, 1 OR MORE AREAS, EACH 15 MINUTES; THERAPEUTIC EXERCISES TO DEVELOP STRENGTH AND ENDURANCE, RANGE OF MOTION AND FLEXIBILITY [facility] EAR MOLD/INSERT, NOT DISPOSABLE, ANY TYPE [facility] A isted Exercises For ROM Assisted Exercises For ROM 66073 LA ROGER [facility] Athletic Training Re-evaluation Athletic Training Re-evaluation 70063 [place] ROGER [facility] Threshold Audiogram (Pure Tone) Automated Threshold Audiogram (Pure Tone) Automated [id number] ANNIE VAZQUEZ [facility] Preventive Medicine Administration Of Health Risk Questionnaire Patient-Focused Preventive Medicine Administration Of Health Risk Questionnaire Patient-Focused 91871 NEDRA SOTO [facility] Psychometric Emotional / Behavioral A e ment Psychometric Emotional / Behavioral Assessment 24434 KAYLAN CARROLL [facility] Athletic Training Evaluation Low Complexity Athletic Training Evaluation Low Complexity 93898 [place] ROGER [facility] A isted Exercises For ROM Assisted [place]ises [place] ROM 10991 [place] ROGER [facility] Immunization Administration By Injection, One Vaccine Immunization Administration By Injection, One Vaccine 87575 [facility], [facility] Immunization Administration By Injection, Each Additional Vaccine Immunization Administration By Injection, Each Additional Vaccine 89137 [facility], [facility] Hepatitis A Vaccine Adult Dosage (Intramuscular Use) Hepatitis A Vaccine Adult Dosage (Intramuscular Use) 8[address]39 [facility], ROSA [facility] Vaccines Viral Polio, Inactivated Vaccines Viral Polio, Inactivated 63273 [facility], [facility] Meningococcal Conjugate Vaccine Quadrivalent Serogroups A, C, Y, W-135 [facility], [facility] Vaccines Viral Measles, Mumps and Rubella, Live Vaccines Viral Measles, Mumps and Rubella, Live 73600 [facility], [facility] Tdap Vaccine Tdap Vaccine 55317 [facility], [facility] Immunization Admin Intranasal / Oral Each Additional Vaccine Immunization Admin Intranasal / Oral Each Additional Vaccine 55940 [facility], [facility] Vaccines Adenovirus Type 4 Live, For Oral Use Vaccines Adenovirus Type 4 Live, For Oral Use 49305 [facility] Vaccines Adenovirus Type 7 Live, For Oral Use Vaccines Adenovirus Type 7 Live, For Oral Use 26309 [facility], [facility] ECG Performance of Tracing Only ECG Performance of Tracing Only 84446 ESTRADAMOHAN [facility] ECG Interpretation And Report Only ECG Interpretation And Report Only 72239 CORBIN ISSA [facility] Influenza Split Virus Vaccine IM Preserv Free 0.5mL Dosage Quadrivalent Influenza Split Virus Vaccine IM Preserv Free 0.5mL Dosage Quadrivalent 27105 AMBROSIO PAIGE [facility] Vaccines Viral Varicella (Active) Vaccines Viral Varicella (Active) 66798 JAI DICKSON [facility] Social History Combined list of available smoking, tobacco, and other social history from Department of Defense and Veterans Affairs facilities. Social History Type Response Date Comment Sourc e Male 08/30/2021 Ambulatory Pha rmacy Tobacco Frequent/Daily exposure to secondhand smoke in indoor/confined spaces No. Never-cigarette user Cigarette use:. Never-other tobacco user (not cigarettes) Other Tobacco use:. Ambulatory Pharmacy Sexual Orientation Ambula tory Pharmacy Gender identity Ambulator y Pharmacy This section is an empty social history section. [facility] Assessment and Plan Combined list of future care activities from Department of Defense and Veterans Affairs facilities (e.g., assessment and plan notes, appointments, orders, and referrals). Additional future care activities may be listed in the Plan of Care section. Result Assessment and Plan Date Source Assessment and Plan Extracted from:Title : [facility] Note-L3 profile Author: VICTOR HUGO BOND NP Date: 11/06/22 1.?Pain in bilateral lower legs Virtual appointment.? prime remote patient.? Reviewed FUNCAP .? Patient's PCM recommending permanent profile with avoiding impact activities indefinitely.? 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 Patient was educated over the phone on this and that this would cause him to have a L3 profile and trigger MEB.? Discussed with patient the appropriateness of temporary profile and to rediscuss with primary long term care pharmacist.? Patient notes that he is still pursuing permanent profile. Permit profile initiated and sent for second signature.? Patient aware [facility] will contact him with instructions within 1-2 weeks.? If not contacted should be calling the clinic to request help/update on med board profiling.? Patient acknowledged all and agrees to care plan. 05/08/2024 Ambulatory Pharmacy Functional Status Combined list of recent functional and cognitive assessments recorded at Department of Defense and Veterans Affairs (VA).VA Functional [place] Measurement (FIM) Scale: 1 = Total Assistance (Subject = 0% +), 2 = Maximal Assistance (Subject = 25% +), 3 = Moderate Assistance (Subject = 50% +), 4 = Minimal Assistance (Subject = 75% +), 5 = Supervision, 6 = Modified Limestone (Device), 7 = Complete [place] (Timely, Safely). Assessment Date/Time Source Assessment Type Assessment Skill Assessment Score Assessment Details No data available for this section
== END 2024-05-08 14:10 | disposition home or self-care (01) ==
PROVIDERS: PCP Family Medicine; Visit Provider Family Medicine
DX: E78.5 Hyperlipidemia, unspecified (principal); R74.01 Elevation of levels of liver transaminase levels; E66.9 Obesity, unspecified; Z68.35 Body mass index [BMI] 35.0-35.9, adult

== ENCOUNTER → 2024-05-08 13:41 | Outpatient (BNVA) | payer OTHER, SELFPAY | PROVIDERS: PCP Family Medicine; Visit Provider Family Medicine | DX: E78.5 Hyperlipidemia, unspecified (principal); R74.01 Elevation of levels of liver transaminase levels; E66.9 Obesity, unspecified | CPT/HCPCS: 96127; 99212 ==

== ENCOUNTER 2024-06-08 12:32 | Outpatient (REF) | payer OTHER, SELFPAY ==
--- OUTSIDE RECORDS SUMMARY | 2024-06-08 13:35 | XMS_ITS | Clinical Summary ---
Author Organization [facility] Address [address] [place] [address] Care Team Providers Care Communications Writer Name Role Phone Unavailable Primary Care Provider Unavailabl e Medications No known medications Active Problems No known active problems Immunizations Name Administration Dates Next Due Tdap 02/06/2023(Deferred: - pt report s he got the shot recently) Social History Tobacco Use Types Packs/Day Years Used Date Smoking Tobacco: Never Assessed Sex and Gender Information Value Date Recorded Sex Assigned at Male 02/06/2023 5:21 PM EDT Gender Identity Not on file Sexual Orientation Not on file Job Start Date Occupation Industry Not on file Not on file Not on file Last Filed Vital Signs Vital Sign Reading Time Taken Comments Blood Pressure 127/68 02/06/2023 5:34 PM EDT Pulse 79 02/06/2023 5:36 PM EDT Temperature 36.7 ??C (98.1 ??F) 02/06/2023 5:32 PM ED T Respiratory Rate 15 02/06/2023 5:36 PM EDT Oxygen Saturation 100% 02/06/2023 5:36 PM EDT Inhaled Oxygen Concentration - - Weight - - Height - - Body Mass Index - - Plan of Treatment Health Maintenance Due Date Last Done Comments Hepatitis C Screening 1998 Depression Screening 2010 Preventative Health Evaluation 2016 Hepatitis B Vaccines (4 of 4 - 4-dose series) 10/04/2017 09/09/2017, 08/09/2017, 06/12/2016 COVID-19 Vaccine ( season) 2023 02/20/2021, 01/24/2021 Influenza Vaccine (#1) 2023 , 02/13/2020, 03/18/2019, Additional history exists DTap / Tdap / Td (8 - Td or Tdap) 10/17/2028 10/17/2018, 06/12/2016, 12/14/2005, Additional history exists Pneumococcal Vaccine Aged Out No long er eligible based on patient's age to complete this topic RSV Ped < 20 months Aged Out No longe r eligible based on patient's age to complete this topic Zara Quinonez TPL/AUTO Self 2000 [address] [place] [id number]
--- OUTSIDE RECORDS SUMMARY | 2024-06-08 13:35 | XMS_ITS | Continuity of Care Document ---
Author Name [facility] Organization 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 Unavailable Unavailable Problems Combined list of problems from Department of Defense and [facility] facilities. It does not include entries that were removed or entered in error. Problem Status Onset Date Problem Type Date of Resolution Comme nts Source Encounter for screening for other viral diseases Inactive 07/28/2020 Condition DoD Medications Combined list of outpatient medications from Department of Defense and [facility] facilities.Medications provided include 1) outpatient medications from the last 15 months, and 2) patient-reported medications. Medication Details Route Status Patient Instructions Prescription Expires Prescription Number Last Dispense Date Ordering Provider Order Date Order Qty Source ATORVASTATI N CALCIUM (atorvastat in calcium), 40 MG, TABLET, ORAL, BIOCON PHARMA I, 1000 ea. BOTTLE Active [id number] 2023 90 Pharmac y Data Transac tion Service Facilit y CYCLOBENZAP RINE HCL (cyclobenza joselin HCl), 10 MG, TABLET, ORAL, TEVA [place], 1000 ea. BOTTLE Active [id number] 2023 28 Pharmac y Data Transac tion Service Facilit y Allergies, Adverse Reactions, Alerts Combined list of allergies from Department of Defense and [facility] facilities. It does not include entries [...] Site Reaction Lot Number CVX Code Drug Cryptographer Status Comments Source influenza, injectable, quadrivalent 2020 [id number] Seqirus complet ed influenza , injectabl e, quadrival ent 03/09/21 Given Ambulat ory Pharmac y influenza, injectable, quadrivalent, contains preservative 1 2020 [id number] Seqirus (SEQ) comple t ed influenza , injectabl e, quadrival ent, contains preservat alexander DoD COVID Vaccine Pfizer 2020 [id number] PFIZER complet ed COVID Vaccine Pfizer 02/20/21 Given Ambulat ory Pharmac y COVID Vaccine Pfizer 2020 [id number] PFIZER complet ed COVID Vaccine Pfizer 01/24/21 Given Ambulat ory Pharmac y SARS-COV-2 (COVID-19) vaccine, mRNA, spike protein, LNP, preservative free, 30 mcg/0.3mL dose 1 2020 [id number] Pfizer, Inc (PFR) complet ed SARS-COV- [...] free DoD measles/mumps /rubella virus vaccine 2019 [id number] 03 Merck & Company Inc complet ed measles/m umps/rube lla virus vaccine 05/15/19 Given Ambulat ory Pharmac y hepatitis A adult vaccine 2019 [id number] 52 GlaxoSmithKli ne complet ed hepatitis A adult vaccine 05/15/19 Given Ambulat ory Pharmac y measles, mumps and rubella virus vaccine 2 2019 [id number] Merck (MSD) complet ed measles, mumps and rubella virus vaccine DoD hepatitis A vaccine, adult dosage 2 2019 [id number] [facility] complet ed hepatitis A vaccine, adult dosage DoD influenza, injectable, quadrivalent- pf 2018 zzLef t Arm [id number] 150 Seqirus complet ed influenza , injectabl e, quadrival ent-pf 03/18/19 Given Ambulat ory Pharmac y Influenza, injectable, quadrivalent, preservative free 1 2018 LUISA JOHANNE Rona [id number] 150 Seqirus (SEQ) complet ed Influenza , injectabl e, quadrival ent, preservat alexander free DoD varicella virus vaccine 2018 [id number] Merck & Company Inc complet ed varicella virus vaccine 11/18/18 Given Ambulat ory Pharmac y varicella virus vaccine 2 2018 [id number] 21 Merck (MSD) complet ed varicella virus vaccine DoD tetanus, diphtheria, acellular pertu is 2018 [id number] 115 GlaxoSmithKli ne complet ed tetanus, diphtheri a, acellular pertussis 10/17/18 Given Ambulat ory Pharmac y poliovirus vaccine, inactivated 2018 [id number] 10 sanofi pasteur complet ed polioviru s vaccine, inactivat ed 10/17/18 Given Ambulat ory Pharmac y adenovirus vaccine, live 2018 [id number] 143 Teva Pharmaceutica ls complet ed adenoviru s vaccine, live 10/17/18 Given Ambulat ory Pharmac y measles/mumps /rubella virus vaccine 2018 [id number] 03 Merck & Company Inc complet ed measles/m umps/rube lla virus vaccine 10/17/18 Given Ambulat ory Pharmac y meningococcal A,C,Y,W-135 (MCV4P) 2018 [id number] 114 sanofi pasteur complet ed meningoco ccal A,C,Y,W-1 35 (MCV4P) 10/17/18 Given Ambulat ory Pharmac y varicella virus vaccine 2018 [id number] 21 Merck & Company Inc complet ed varicella virus vaccine 10/17/18 Given Ambulat ory Pharmac y hepatitis A adult vaccine 2018 [id number] 52 GlaxoSmithKli ne complet ed hepatitis A adult vaccine 10/17/18 Given Ambulat ory Pharmac y measles, mumps and rubella virus vaccine 1 2018 [id number] 03 Merck (MSD) complet ed measles, mumps and rubella virus vaccine DoD poliovirus vaccine, inactivated 1 2018 [id number] 10 Sanofi Pasteur ([facility]) complet ed polioviru s vaccine, inactivat ed DoD varicella virus vaccine 1 2018 [id number] 21 Merck (MSD) complet ed varicella virus vaccine DoD hepatitis A vaccine, adult dosage 1 2018 [id number] 52 SmithKline ([facility]) complet ed hepatitis A vaccine, adult dosage DoD meningococcal polysaccharid e (groups A, C, Y and W-135) diphtheria toxoid conjugate vaccine (MCV4P) 2018 [id number] 114 Sanofi Pasteur ([facility]) complet ed meningoco ccal polysacch aride (groups A, C, Y and W-135) diphtheri a toxoid conjugate vaccine (MCV4P) DoD tetanus toxoid, reduced diphtheria toxoid, and acellular pertu is vaccine, adsorbed 2018 [id number] 115 SmithKline ([facility]) complet ed tetanus toxoid, reduced diphtheri a toxoid, and acellular pertussis vaccine, adsorbed DoD Adenovirus, type 4 and type 7, live, oral 1 2018 [id number] 143 RegaloCard (BRR) complet ed Adenoviru s, type 4 and type 7, live, oral DoD mumps virus vaccine 2018 UNK 07 Unknown (UNK) Not Given [...] facility. Vital Sign Value Date Comments Source Systolic Blood Pressure 120 mm[Hg] 06/03/2024 11:51:[address] [place] [address] Diastolic Blood Pressure 80 mm[Hg] 06/03/2024 11:51:[address] [place] [address] Peripheral Pulse Rate 79 bpm 06/03/2024 11:51:[address] [place] [address] Encounters Combined list of: 1) Encounters from Department of Veterans Affairs facilities going backup to the last 18 months, not all VA inpatient encounters are included; 2) Encounters from the Department of Defense facilities going backup to 280 months. Location Location Details Encounter Type Encounter Number Reason For Visit Attending Provider ADM Date DC Date Status Disposition Source [address] [place] [address]([facility] Physical Therapy) OUTPATIENT [id number] Notes Entered by: ROBERT WONG 28 Oct 2018 1346 ------- ------- ------- ------- -- Knee pain JOSE ROGER 10/28 Released with Work/Duty Limitations [facility] Phys[facility] ) [facility] Physical Therapy) OUTPATIENT [id number] Notes Entered by: ROBERT WONG 31 Oct 2018 1300 ------- ------- ------- ------- -- Knee pain JOSE ROGRE 10/31 Released with Work/Duty Limitations [facility] Physica l Therapy ) [facility] Primary Care) OUTPATIENT [id number] Notes Entered by: ILIANA TIRADO 18 Nov 2018 1135 ------- ------- ------- ------- -- IEROSA MASON 11/18 Released w/o Limitations [facility](I Primary Care) [facility] Ambulator y) OUTPATIENT [id number] toe pain SHITAL CONLEYEW Jarod 12/31 Released w/o Limitations [facility] Ambulat ory) [facility] Ambulator y) OUTPATIENT [id number] Notes Entered by: Lenny ESPINOSA 02 Jan 2019 0722 ------- ------- ------- ------- -- EMS weak and dizzy MOHAN ESTRADA 01/02 Released w/o Limitations [facility] Ambulat ory) [facility] Ambulator y) OUTPATIENT [id number] Notes Entered by: Asia ADKINS* 02 Jan 2019 0833 ------- ------- ------- ------- -- ekg CORBIN Thompson 01/02 Released w/o Limitations [facility] Ambulat ory) [facility] Ambulator y) OUTPATIENT [id number] f/u UA MOHAN ESTRADA 01/05 Released w/o Limitations [facility](T Ambulat ory) Medical Group([facility] Physical Therapy) OUTPATIENT [id number] Notes Entered by: ROBYN GRANADOS 16 Jan 2019 1127 ------- ------- ------- ------- -- I - right ankle pain and knee stiffne ss HARESH MORRIS 01/16 Released w/o Limitations [facility] Group([facility] Physica l Therapy ) [facility] Flu Clinic) OUTPATIENT [id number] AMBROSIO PAIGE 03/18 Released w/o Limitations Medical Group([facility]) Medical Group([facility] Primary Care) OUTPATIENT [id number] Notes Entered by: MACY DICKSON 24 Jun 2019 0741 ------- ------- ------- ------- -- ANA-JAI TRAN 06/24 Released w/o Limitations [facility](I Primary Care) [facility] Deploymen t Clinic) OUTPATIENT [id number] Notes Entered by: Brandie RED 08 Jul 2020 0658 ------- ------- ------- ------- -- NEDRA SKINNER 07/08 Released w/o Limitations [facility] Deploy[facility] ent [facility]) [facility]) OUTPATIENT [id number] Notes Entered by: BI OLIVA 08 Jul 2020 0844 ------- ------- ------- ------- -- ANNIE MURPHY 07/08 Released w/o Limitations [facility] ) Theater Facility OUTPATIENT [id number] Theater Provider 07/29 Released w/o Limitations Theater Facilit y [facility]) OUTPATIENT [id number] Notes Entered by: Asia VALDESAN 06 Apr 2021 0951 ------- ------- ------- ------- -- KAYLAN PEARL 04/06 Released w/o Limitations [facility] De[facility]) [facility]) OUTPATIENT [id number] Notes Entered by: BI OLIVA 06 Apr 2021 1236 ------- ------- ------- ------- -- HERO LOPEZ 04/06 Released w/o Limitations [facility] Hearing Program ) [facility]) OUTPATIENT [id number] Notes Entered by: SENIA BROCK 14 Apr 2021 0750 ------- ------- ------- ------- -- LORAINE CARRANZA 04/14 Released w/o Limitations [facility] De[facility]) [address] [facility] Outside Documentat ion Only [id number] 04/09 Discharge Disposition: Home or Self Care [address] [facility] [address] [place] [facility] Between Visit [id number] 04/09 Discharge Disposition: Home or Self Care [address] [address] [place] [facility] Mass Readiness [id number] 06/03 Discharge Disposition: Home or Self Care [address] Procedures Combined list of: 1) Procedures from Department of Veterans Affairs facilities going back up to thelast 18 months, not all VA non-surgical procedures are included; 2) All procedures from the Department of Defense facilities. Procedure Procedure Type Code Date Perfomer Comments Sourc e ADMINISTRATION OF PATIENT-FOCUSED HEALTH RISK ASSESSMENT INSTRUMENT (EG, HEALTH HAZARD APPRAISAL) WITH SCORING AND DOCUMENTATION, PER STANDARDIZED INSTRUMENT [address] [place] [address] PURE TONE AUDIOMETRY (THRESHOLD), AUTOMATED; AIR ONLY [facility] ADMINISTRATION OF PATIENT-FOCUSED HEALTH RISK ASSESSMENT INSTRUMENT (EG, HEALTH HAZARD APPRAISAL) WITH SCORING AND DOCUMENTATION, PER STANDARDIZED INSTRUMENT [facility] PURE TONE AUDIOMETRY (THRESHOLD), AUTOMATED; AIR ONLY [facility] SCREENING TEST OF VISUAL ACUITY, QUANTITATIVE, BILATERAL [facility] VARICELLA VIRUS VACCINE (JOSEPHINE), LIVE, FOR SUBCUTANEOUS USE [facility] IMMUNIZATION ADMINISTRATION (INCLUDES PERCUTANEOUS, INTRADERMAL, SUBCUTANEOUS, OR INTRAMUSCULAR INJECTIONS); 1 VACCINE (SINGLE OR COMBINATION VACCINE/TOXOID) [facility] THERAPEUTIC PROCEDURE, 1 OR MORE AREAS, EACH 15 MINUTES; THERAPEUTIC EXERCISES TO DEVELOP STRENGTH AND ENDURANCE, RANGE OF MOTION AND FLEXIBILITY [facility] ELECTROCARDIOGRAM, ROUTINE ECG WITH AT LEAST 12 LEADS; INTERPRETATION AND REPORT ONLY [facility] ELECTROCARDIOGRAM, ROUTINE ECG WITH AT LEAST 12 LEADS; TRACING ONLY, WITHOUT INTERPRETATION AND REPORT [facility] ADENOVIRUS VACCINE, TYPE 7, LIVE, FOR ORAL USE [facility] THERAPEUTIC PROCEDURE, 1 OR MORE AREAS, EACH 15 MINUTES; THERAPEUTIC EXERCISES TO DEVELOP STRENGTH AND ENDURANCE, RANGE OF MOTION AND FLEXIBILITY [facility] THERAPEUTIC PROCEDURE, 1 OR MORE AREAS, EACH 15 MINUTES; THERAPEUTIC EXERCISES TO DEVELOP STRENGTH AND ENDURANCE, RANGE OF MOTION AND FLEXIBILITY [facility] EAR MOLD/INSERT, NOT DISPOSABLE, ANY TYPE [facility] A isted Exercises For ROM Assisted [place] ROM 70290 LA ROGER [facility] Athletic Training Re-evaluation Athletic Training Re-evaluation 10752 LA ROGER [facility] Threshold Audiogram (Pure Tone) Automated Threshold Audiogram (Pure Tone) Automated [id number] ANNIE VAZQUEZ [facility] Preventive Medicine Administration Of Health Risk Questionnaire Patient-Focused Preventive Medicine Administration Of Health Risk Questionnaire Patient-Focused 07528 NEDRA SOTO [facility] Psychometric Emotional / Behavioral A e ment Psychometric Emotional / Behavioral Assessment 03350 KAYLAN CARROLL [facility] Athletic Training Evaluation Low Complexity Athletic Training Evaluation Low Complexity 01856 LA ROGER [facility] A isted Exercises For ROM Assisted [place] 09456 [place] ROGER Immunization Administration By Injection, One Vaccine Immunization Administration By Injection, One Vaccine 32087 [facility] Immunization Administration By Injection, Each Additional Vaccine Immunization Administration By Injection, Each Additional Vaccine 96109 [facility] Hepatitis A Vaccine Adult Dosage (Intramuscular Use) Hepatitis A Vaccine Adult Dosage (Intramuscular Use) 55314 [facility] Vaccines Viral Polio, Inactivated Vaccines Viral Polio, Inactivated 13006 [facility] Meningococcal Conjugate Vaccine Quadrivalent Serogroups A, C, Y, W-135 [facility] Vaccines Viral Measles, Mumps and Rubella, Live Vaccines Viral Measles, Mumps and Rubella, Live 35626 [facility] Tdap Vaccine Tdap Vaccine 13192 [facility] Immunization Admin Intranasal / Oral Each Additional Vaccine Immunization Admin Intranasal / Oral Each Additional Vaccine 93622 [facility] Vaccines Adenovirus Type 4 Live, For Oral Use Vaccines Adenovirus Type 4 Live, For Oral Use 41639 [facility] Vaccines Adenovirus Type 7 Live, For Oral Use Vaccines Adenovirus Type 7 Live, For Oral Use 05056 [facility] ECG Performance of Tracing Only ECG Performance of Tracing Only 42562 MOHAN ESTRADA [facility] ECG Interpretation And Report Only ECG Interpretation And Report Only 96055 CORBIN ISSA [facility] Influenza Split Virus Vaccine IM Preserv Free 0.5mL Dosage Quadrivalent Influenza Split Virus Vaccine IM Preserv Free 0.5mL Dosage Quadrivalent 59446 AMBROSIO PAIGE [facility] Vaccines Viral Varicella (Active) Vaccines Viral Varicella (Active) 34678 JAI DICKSON [facility] No data available for this section Ambulato ry Pharmacy Social History Combined list of available smoking, tobacco, and other social history from Department of Defense and Veterans Affairs facilities. Social History Type Response Date Comment [facility] e Male 08/30/2021 Ambulatory Pha rmacy This section is an empty social history section. [facility] Tobacco Frequent/Daily exposure to secondhand smoke in indoor/confined spaces No. Never-cigarette user Cigarette use:. Never-other tobacco user (not cigarettes) Other Tobacco use:. Ambulatory Pharmacy Sexual Orientation Ambula tory Pharmacy Gender identity Ambulator y Pharmacy Assessment and Plan Combined list of future care activities from Department of Defense and Veterans Affairs facilities (e.g., assessment and plan notes, appointments, orders, and referrals). Additional future care activities may be listed in the Plan of Care section. Result Assessment and Plan Date Source Assessment and Plan Extracted from:Title : Education Note Author: FIDEL LOWE Adria Date: 06/03/24 Extracted from:Title: [id number] Note-L3 profile Author: VICTOR HUGO BOND [...] temporary profile and to rediscuss with primary hospice care sales consultant.? Patient notes that he is still pursuing permanent profile. Permit profile initiated and sent for second signature.? Patient aware [facility] will contact him with instructions within 1-2 weeks.? If not contacted should be calling the clinic to request help/update on med board profiling.? Patient acknowledged all and agrees to care plan. 06/08/[address] [place] [address] [facility] Assessment and Plan Extracted from:Title : Education Note Author: FIDEL LOWE Adria Date: 06/03/24 Extracted from:Title: P[facility] Note-L3 profile Author: VICTOR HUGO BOND [...] temporary profile and to rediscuss with primary hospice care sales consultant.? Patient notes that he is still pursuing permanent profile. Permit profile initiated and sent for second signature.? Patient aware [facility] will contact him with instructions within 1-2 weeks.? If not contacted should be calling the clinic to request help/update on med board profiling.? Patient acknowledged all and agrees to care plan. 06/08/2024 [facility] Functional Status Combined list of recent functional and cognitive assessments recorded at Department of Defense and Veterans Affairs (VA).VA Functional Mcminn Measurement (FIM) Scale: 1 = Total Assistance (Subject = 0% +), 2 = Maximal Assistance (Subject = 25% +), 3 = Moderate Assistance (Subject = 50% +), 4 = Minimal Assistance (Subject = 75% +), 5 = Supervision, 6 = Modified Mcminn (Device), 7 = Complete Mcminn (Timely, Safely). Assessment Date/Time Source Assessment Type Assessment Skill Assessment Score Assessment Details No data available for this section
--- OUTSIDE RECORDS SUMMARY | 2024-06-08 13:35 | XMS_ITS | Clinical Summary ---
Author Organization 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 Phone Unavailable Primary Care Provider Unavailabl e Immunizations Name Administration Dates Next Due Pfizer SARS-CoV-2 COVID-19, mRNA, LNP-S, preservative free 02/20/2021,01/24/2021 Social History Tobacco Use Types Packs/Day Years Used Date Smoking Tobacco: Never Assessed Sex and Gender Information Value Date Recorded Sex Assigned at Not on file Legal Sex Male 10:21 AM EST Gender Identity Not on file Sexual Orientation Not on file Obstetrics History Plan of Treatment Health Maintenance Due Date Last Done Comments DTaP,Tdap,and Td Vaccines (1 - Tdap) 2005 HPV Vaccines (1 - Male 3-dos e series) 2013 Hepatitis B Vaccines (1 of 3 - 19+ 3-dose series) 2017 Depression Screening 06/02/2023 HIV Screening 06/02/2023 Hepatitis C Screening 06/02/2023 Social Influencers of Health Screening 06/02/2023 COVID-19 Vaccine (3 - 2023-2 5 season) 2023 02/20/2021, 01/24/2021 Influenza Vaccine (#1) 2023 HIB Vaccines Aged Out No longer eligi ble based on patient's age to complete this topic Hepatitis A Vaccines Aged Out No long er eligible based on patient's age to complete this topic IPV Vaccines Aged Out No longer eligi ble based on patient's age to complete this topic MMR Vaccines Aged Out No longer eligi ble based on patient's age to complete this topic Meningococcal ACWY Vaccine Aged Out N o longer eligible based on patient's age to complete this topic Meningococcal B Vacine Aged Out No lo nger eligible based on patient's age to complete this topic Pneumococcal Vaccine: Pediatrics (0 to 5 Years) and At-Risk Patients (6 to 64 Years) Aged Out No longer eligible b ased on patient's age to complete this topic RSV Immunization Patients Under 20 months Aged Out No longer eligible b ased on patient's age to complete this topic Varicella Vaccines Aged Out No longer eligible based on patient's age to complete this topic
[2024-06-08 14:07] LABS: Appearance Urine Clear; Color Urine Yellow; Glucose Urine UA Negative (Negative); Leukocyte Esterase Urine Negative (Negative); Nitrite Urine Negative (Negative); Specific Gravity - Urine >= 1.030 (1.005-1.025); Urine Blood Negative (Negative); Urine Ketones Negative (Negative); Urine Protein Negative (Neg-Trace)
[2024-06-08 14:25] LABS: Estimated Average Glucose 103 mg/dL; Hemoglobin A1C 131.2201 umol/L; Hemoglobin A1c % 5.2 % (<6.0); Total Hemoglobin (HGBA1C) 3960.3192 umol/L
[2024-06-08 14:44] LABS: Alanine Aminotransferase 36 U/L (0-40); Albumin Level 4.4 g/dL (3.5-5.0); Alkaline Phosphatase 86 U/L (39-117); Anion Gap 7 (12-20); Aspartate Amino Transferase 26 U/L (5-37); Bilirubin Total 0.6 mg/dL (0.0-1.0); Blood Urea Nitrogen 10 mg/dL (9-16); Calcium 9.2 mg/dL (8.4-10.2); Carbon Dioxide 28 mmol/L (22-29); Chloride 108 mmol/L (96-108); Cholesterol 232 mg/dL (<200); Estimated Glomerular Filt Rate > 60; Glucose Fasting 91 mg/dL (60-99); HDL Cholesterol 31 mg/dL (>40); LDL Cholesterol Calculated 177 mg/dL (<100); Sodium 139 mmol/L (135-145); Total Protein 8.2 g/dL (6.5-8.0); Triglycerides 123 mg/dL (<150)
[2024-06-08 14:45] LABS: TSH reflex Free T4 1.02 uIU/mL (0.32-4.0)
[2024-06-08 14:54] LABS: Microalbum/Creatinine Ratio Ur 4.9 ug/mg cr (<30)
[2024-06-09 21:09] LABS: LDL Cholesterol Direct 173 mg/dL (<100)
== END 2024-06-08 12:33 | disposition home or self-care (01) ==
LOC: HO.WFDLDS 12:32
PROVIDERS: Visit Provider Family Medicine
DX: Z00.00 Encounter for general adult medical examination without abnormal findings (principal); I10 Essential (primary) hypertension; R73.01 Impaired fasting glucose; R40.0 Somnolence; E78.5 Hyperlipidemia, unspecified; R74.01 Elevation of levels of liver transaminase levels
CPT/HCPCS: 36415; 80053; 80061; 81003; 82043; 82570; 83036; 83721; 84443; 96127

== ENCOUNTER 2024-06-08 12:43 | Outpatient (AMB) | payer OTHER, SELFPAY ==
--- NOTE | 2024-06-08 12:47 | MHC.PC.OV ---
Vital Signs 06/08/24 12:54 Height 5 ft 11 in Weight 247 lb BMI 34.4 BP 112/60 Blood Pressure Location Rt brachial Position Sitting Respiration 16 Pulse 66 Pulse Source Pulse Oximeter Temp 98.8 F Temp Source Oral Pulse Oximetry (%) 97 Oxygen Delivery Method Room Air Intake Visit Reasons: He can schedule a physical with [facility] Intake Note: patient here for CPE Knapsack Sprayer Required: No Allergies egg Allergy (Verified 06/08/24 13:16) Vomiting Medication List - Last Reconciled 06/08/24 by Donald Jorge CNP No Known Home Meds Tobacco use date assessed: 06/08/24 Dental Screening Dental Screen Date: 06/08/24 Did you have a dental visit in the last 12 months?: Yes Did you have a dental problem in the last 6 months where you did not have access to dental care?: No Was dental information given to patient?: Patient has dentist HPI HPI Comments History of Present Illness Details 23-year-old male presents for an extended physical exam and review of recent labs results He is a patient Dr. Yancey He stopped taking atorvastatin and cholecalciferol several months ago. He his forgetful to take his medications and also does not like to take medications. He did fasting blood work this morning and they have not resulted. Acute issue(s) - None Past Medical History - hyperlipidemia, elevated ALT, hepatic steatosis, obesity Social History - Nonsmoker. Does not vape. Does not drink. Denies recreational drug use - Has been making healthy dietary choices. Walk 2 miles on the treadmill every two weeks. Generally sleep well - He notes that he has not been sexually active for a year and has no concern for STDs Health maintenance - Last eye exam was on 06/03/2024 - Last dental visit was 03/2024. - Last tetanus vaccine was on 06/12/2016 - He notes that he is up-to-date on the flu vaccine [facility] Medical History No pertinent past medical history Surgical History No pertinent past surgical history Social History Household Members: Family Both parents involved: No Caregiver staying overnight: No Housing: House Are you a primary ostomy care nurse to a significant other at home: No Do you presently have visiting nurse or other home services: No 75 years or older and lives alone: No Alcohol intake: never Patient Tobacco Use Status: Never used Tobacco e-Cigarette/Vaping Use: Never Used Second Hand Smoke Exposure: No Special warren needs: No Agree to transfusion: Yes service: Yes Current occupational status: employed Sexual orientation: Straight/Heterosexual Gender identity: Male Cognitive needs: No Hearing needs: No Vision needs: No Questionnaire PHQ-9 Over the last 2 weeks, how often have you been bothered by any of the following problems? 1. Little interest or pleasure in doing things: not at all 2. Feeling down, depressed, or hopeless: not at all 3. Trouble falling or staying asleep, or sleeping too much: not at all 4. Feeling tired or having little energy: not at all 5. Poor appetite or overeating: not at all 6. Feeling bad about yourself - or that you are a failure or have let yourself or your family down: not at all 7. Trouble concentrating on things, such as reading the newspaper or watching television: not at all 8. Moving or speaking so slowly that other people could have noticed. Or the opposite - being so fidgety or restless that you have been moving around a lot more than usual: not at all 9. Thoughts that you would be better off or of hurting yourself in some way: not at all Total score: 0 Depression Screening Interpretation: Negative Depression Screening Done: Yes 65750 - PHQ-9 Billing: Yes Source: Developed by Drs. Dong Naik, Lisa Toney, Vishnu Vaz and colleagues, with an educational george from [employer]. Thrive Questionnaire Date Thrive assessed: 06/08/24 I am a: Patient What is your living situation today?: I have a steady place to live Within the past 12 months, did the food you bought not last and you didn't have the money to get more?: Never true Within the past 12 months, did you worry whether your food would run out before you got money to buy more?: Never true Do you have trouble paying for medicines?: No Do you have trouble getting transportation to medical appointments?: No Do you have trouble paying your heating and electricity bill?: No Do you have trouble taking care of your child, family member or friend?: No Do you have trouble with day-to-day activities such as bathing, preparing meals, shopping, managing finances, etc.?: No Are you currently unemployed and looking for a job?: No Are you interested in more education?: No Please select the resources that you would like help with: None Currently or been in a relationship where the following occur: No concerns reported THRIVE Score: 0 AUDIT C Alcohol Use Questionnaire (AUDIT-C) 1. How often do you have a drink containing alcohol?: Never Total Score: 0 SHIVA-7 AMB Questionnaire SHIVA-7 Date SHIVA - 7 assessed: 06/08/24 Feeling nervous, anxious, or on edge: 0 = Not at all Not being able to stop or control worryin = Not at all Worrying too much about different things: 0 = Not at all Trouble relaxin = Not at all Being so restless that it is hard to sit still: 0 = Not at all Becoming easily annoyed or irritable: 0 = Not at all Feeling afraid as if something awful might happen: 0 = Not at all Total SHIVA-7 score (0-4 normal; 5-9 mild; 10-14 moderate; 15-21 severe): 0 Source: Developed by Drs. Dong Naik, Lisa Toney, Vishnu Vaz and colleagues, with an educational george from [employer]. SHIVA-7 Assessment Billing SHIVA-7 Assessment Tool: SHIVA-7 Assessment 24745 Review of Systems Const Details: Denies chills, Denies fatigue, Denies fever(s), Denies headache(s) and Denies weakness HEENT Denies change in vision, Denies dizziness, Denies headache(s), Denies hearing loss, Denies nasal congestion, Denies sinus pain, Denies sinus pressure and Denies sore throat Card Denies chest pain, Denies lightheadedness, Denies dyspnea and Denies other (palpitations) Resp Denies cough, Denies dyspnea and Denies wheezing GI Denies abdominal pain, Denies melena, Denies hematochezia, Denies change in bowel habits, Denies dyspepsia and Denies nausea Denies hematuria and Denies dysuria Musc Denies abnormal gait, Denies myalgias, Denies arthralgias, Denies numbness and Denies tingling Skin/Breast Denies rash, Denies unusual bruising and Denies wounds Neuro Denies abnormal gait, Denies dizziness, Denies headache(s), Denies memory loss, Denies numbness, Denies Sensory deficit (Neuro), Denies tingling and Denies weakness Psych Denies anxiety, Denies depression and Denies memory loss Endo Denies cold intolerance, Denies fatigue, Denies heat intolerance, Denies polydipsia and Denies polyuria Skip/Lymph Denies easy bleeding and Denies easy bruising Aller/Immun Denies wheezing Physical exam (Primary Care) Vital Signs: Last Vital Signs Temp 98.8 F 06/08/24 12:54 Pulse 66 06/08/24 12:54 Resp 16 06/08/24 12:54 BP 112/60 06/08/24 12:54 Pulse Ox 97 06/08/24 12:54 Oxygen Delivery Method Room Air 06/08/24 12:54 BMI result Body Mass Index 34.4 Tobacco/Smoking Status: Tobacco use Status Tobacco use date assessed 06/08/24 06/08/24 12:53 Patient Tobacco Use Status Never used Tobacco 06/08/24 12:50 e-Cigarette/Vaping Use Never Used 06/08/24 12:50 PHQ-9: PHQ-9 Score PHQ-9: Total score 0 06/08/24 12:50 Depression Screening Interpretation: Negative Thrive Assessment: Date of Thrive Assessment Date Thrive assessed 06/08/24 06/08/24 12:50 Currently or been in a relationship where the following occur: No concerns reported Const Other: General: no acute distress, well developed, alert and awake Nutritional Appearance: well nourished Orientation/consciousness: patient oriented x3 HENMT Head: Yes normocephalic and Yes atraumatic Ears: hearing grossly normal bilaterally and TM's normal bilaterally General nose exam: Normal external nose present and Normal nares present Mouth: Normal oral and palatal mucosa present and moist mucous membranes Teeth and gingiva: dentition normal Throat: Yes oropharynx normal Eyes Pupils: Equal, round and reactive pupils present and Pupil accommodation reflex normal EOM: EOMs intact bilaterally Neck Neck: Yes normal visual inspection, Yes no lymphadenopathy and Yes trachea midline Thyroid: Thyroid normal Carotids: no bruits Lymphatic: no lymphadenopathy noted Chest Chest palpation & inspection: normal inspection of the chest Resp Effort & Inspection: normal respiratory effort Auscultation: clear to auscultation bilaterally Cardio Rate: regular rate Rhythm: regular rhythm Heart sounds: S1 normal heart sound present, S2 normal heart sound present, no gallops, no murmurs and no rubs Bruits: no abdominal aortic bruits and no carotid bruits GI Palpation (GI): No Abdominal aortic bruit present, Soft to palpation, nontender, No hepatosplenomegaly present and No Rebound tenderness present Auscultation: normal bowel sounds General: Yes no CVA tenderness Back/Spine/Pelvis Back: no CVA tenderness Cervical Spine: cervical ROM normal and No Cervical spine tenderness Thoracic/Lumbar Spine: thoraco-lumbar ROM normal, No pain with thoraco-lumbar ROM, No thoracic spinal tenderness and No lumbar spinal tenderness Skin General: warm and dry. Normal skin color. Normal skin turgor Lesions: no lesions Rashes: no rashes Trauma: no lacerations or abrasions Wounds: no wounds Nails: normal Neuro General: patient oriented x3, gait normal and CN's II-XI intact bilaterally Cranial nerves: Yes Equal, round and reactive pupils present Cognition (Neuro): normal cognition Gait exam (Neuro): Normal gait present Motor exam (neuro): 5/5 motor strength present throughout Sensory Exam: No Sensory deficit (Neuro) Deep tendon reflexes (DTR's): Right patellar reflex intensity grade: 2+ and Left patellar reflex intensity grade: 2+ Extrem General: Yes normal to inspection, No edema and No calf tenderness Psych Appearance: grossly normal Affect: normal affect Attitude: cooperative Thought process: Normal thought process present Coding Level of Care Code Est Pt Prev Care 18-39y(13056) Diagnoses Adult general medical exam Z00.00 Additional Codes SHIVA-7 Assessment Billing - SHIVA-7 Assessment Tool: SHIVA-7 Assessment 95368 ([id number]) PHQ-9 - 05638 - PHQ-9 Billing: Yes ([id number]) Assessment & Plan Assessment & Plan (1) Adult general medical exam: Code(s): Z00.00 - Encounter for general adult medical examination without abnormal findings Category: Medical Plan: No significant functional limitation noted Healthy diet and routine exercise encouraged Follow-up with PCP in 2-3 weeks for labs review and weight management options Return with symptoms or concerns Verbalized understanding and agreed with the plan.
[2024-06-08 12:54] VITALS: BP 112/60; PULSE 66; RESP 16; TEMP 37.1; O2SAT 97; BMI 34.4
== END 2024-06-08 13:37 | disposition home or self-care (01) ==
PROVIDERS: PCP Family Medicine; Visit Provider Nurse Practitioner Family
DX: Z00.00 Encounter for general adult medical examination without abnormal findings (principal)

== ENCOUNTER 2024-06-25 10:29 | Outpatient (AMB) | payer OTHER, SELFPAY ==
--- NOTE | 2024-06-25 10:24 | MHC.PC.OV ---
Intake Visit Reasons: 2-3 wks telehealth labs reveiew, wt mgmt Allergies egg Allergy (Verified 06/25/24 10:25) Vomiting Tobacco use date assessed: 06/08/24 Dental Screening Dental Screen Date: 06/08/24 HPI 2-3 wks telehealth labs reveiew, wt mgmt HPI Details Telemedicine?encounter?to?review?patient's?CPE-labs. Reviewed?labs?with?patient: LDL?cholesterol?173?is?much?too?high. Sent?a?script?to?restart?his?atorvastatin?last?week?when?he?has?not?been?is. His?other?labs?were?okay No?new?complaints.??Patient?feels?well [facility] Medical History No pertinent past medical history Surgical History No pertinent past surgical history Social History Household Members: Family Both parents involved: No Caregiver staying overnight: No Housing: House Are you a primary cattle care worker to a significant other at home: No Do you presently have visiting nurse or other home services: No 75 years or older and lives alone: No Alcohol intake: never Patient Tobacco Use Status: Never used Tobacco e-Cigarette/Vaping Use: Never Used Second Hand Smoke Exposure: No Special warren needs: No Agree to transfusion: Yes service: Yes Current occupational status: employed Sexual orientation: Straight/Heterosexual Gender identity: Male Cognitive needs: No Hearing needs: No Vision needs: No Questionnaire Thrive Questionnaire Date Thrive assessed: 06/08/24 SHIVA-7 AMB Questionnaire SHIVA-7 Date SHIVA - 7 assessed: 06/08/24 Source: Developed by Drs. Dong Naik, Lisa Toney, Vishnu Vaz and colleagues, with an educational george from [employer]. Review of Systems Const Denies chills, Denies fatigue, Denies fever(s), Denies headache(s) and Denies weakness ENT Denies dizziness and Denies headache(s) Card Denies chest pain, Denies lightheadedness, Denies dyspnea and Denies other (Palpitations) Resp Denies cough, Denies dyspnea, Denies wheezing and Denies other ( shortness of breath) Musc Denies numbness and Denies tingling Neuro Denies dizziness, Denies headache(s), Denies numbness, Denies tingling, Denies paresthesias and Denies weakness Psych Denies anxiety and Denies depression Endo Denies fatigue Aller/Immun Denies wheezing Physical exam (Primary Care) Tobacco/Smoking Status: Tobacco use Status Tobacco use date assessed 06/08/24 06/25/24 10:25 Patient Tobacco Use Status Never used Tobacco 06/25/24 10:25 e-Cigarette/Vaping Use Never Used 06/25/24 10:25 Thrive Assessment: Date of Thrive Assessment Date Thrive assessed 06/08/24 06/25/24 10:25 Telehealth Telehealth Telehealth Platform: Telephone Location of provider rendering services: practice address Location of patient: address on file Patient Identification confirmed using: Name, : Yes Telehealth method: voice only Patient verbally consented to treatment: Yes Patient verbally consented to billing insurance company: Yes Patient informed of any privacy concerns related to visit: Yes Minutes spent on Phone/Video with Pt.: 5 Coding Level of Care Code Tele Est Pt Level 3 (21861) Diagnoses Hyperlipidemia E78.5 Low HDL (under 40) E78.6 Assessment & Plan Assessment & Plan (1) Hyperlipidemia: Code(s): E78.5 - Hyperlipidemia, unspecified Category: Medical Plan: LDL?cholesterol?is?too?high.??Goal?is?less?than?100 Had?sent?a?script?for?atorvastatin?but?patient?has?not?picked?this?up?yet. Encouraged?him?to?start?medication Work?on?a?diet?low?in?saturated?fats?and?cholesterol We?will?follow-up?in?about?2 (2) Low HDL (under 40): Code(s): E78.6 - Lipoprotein deficiency Category: Medical Plan: Encouraged?exercise Orders: Orders Comprehensive [place]. Panel Fast Today E78.5 - Hyperlipidemia, unspecified, Z00.00 - Encounter for general adult medical examination without abnormal findings Lipid Panel Today E78.5 - Hyperlipidemia, unspecified, Z00.00 - Encounter for general adult medical examination without abnormal findings
--- OUTSIDE RECORDS SUMMARY | 2024-06-25 12:14 | XMS_ITS | Clinical Summary ---
Author Organization [facility] Address [address] [place] [address] Care Team Providers Care Textile Machine Operator Name Role Phone Julio Coleman IRON MELTER Primary Care Provider [phone] Source Comments PLEASE NOTE, if this patient is a minor, it may be UNLAWFUL to discuss sensitive information that is contained in these records (such as FAMILY PLANNING, MENTAL HEALTH or SUBSTANCE ABUSE) with the minor patient's parent or other person without the patient's specific authorization.[facility] Allergies No known active allergies Immunizations Name Administration Dates Next Due Bacillus Calmette-jaqueline (tb) 1998 DTAP (DAPTACEL),5 PERTUSSIS ANTIGENS ,02/15/2000,02/16/1999,01/05,1998 HEP B, PED/ADOL 06/12/2016 HPV 9 (Gardasil) 01/30/2018,09/30/2017, 8 Hep B, Adult/Adol (ENERGIX/RECOMBIVAX) 8,08/09/2017 INFLUENZA, SEASONAL, INJECTABLE 06/12/2016 MENINGOCOCCAL MCV4P (MENACTRA) 08/07/2017 MMR (MMR II/Priorix) 02/15/2000,10/05/1999 OPV, Trivalent 12/14/2005, 0,02/16/1999,01/05,1998 TDAP 06/12/2016 Varicella, Live Vaccine 09/09/2017,08/09/2017 Social History Tobacco Use Types Packs/Day Years Used Date Smoking Tobacco: Never Smokeless Tobacco: Never Alcohol Use Standard Drinks/Week Comments No 0 (1 standard drink = 0.6 oz pur e alcohol) Social Connections Answer Date Recorded Social Connections and Isolation 0 12/22/2018 Financial Resource Strain Answer Date R ecorded Financial Resource Strain 0 2018 Stress Answer Date Recorded Stress 0 12/22/2018 Physical Activity Answer Date Recorded Physical Activity 0 12/22/2018 Food Insecurity Answer Date Recorded Food 0 12/22/2018 Transportation Needs Answer Date Record ed Transportation 0 12/22/2018 Housing Stability Answer Date Recorded Housing 0 12/22/2018 Safety and Environment Answer Date Sarath rded Safety 0 12/22/2018 Utilities Answer Date Recorded Utilities 0 12/22/2018 Employment Answer Date Recorded Employment 0 12/22/2018 Sex and Gender Information Value Date Recorded Sex Assigned at Male 07/31/2017 7:53 AM PDT Legal Sex Male 5:45 AM PDT Gender Identity Male 07/31/2017 7:53 AM PDT Sexual Orientation Don't know 07/31/2017 7: 53 AM PDT Last Filed Vital Signs Vital Sign Reading Time Taken Comments Blood Pressure 124/72 04/09/2018 2:28 PM EST Pulse 80 04/09/2018 2:28 PM EST Temperature 36.7 ??C (98 ??F) 04/09/2018 2:28 PM EST Respiratory Rate 20 04/09/2018 2:28 PM EST Oxygen Saturation 96% 04/09/2018 2:28 PM EST Inhaled Oxygen Concentration - - Weight 59.4 kg (131 lb) 04/09/2018 2:28 PM EST Height 179 cm (5' 10.47 ) 04/09/2018 2:28 PM EST Body Mass Index 18.55 04/09/2018 2:28 PM EST Plan of Treatment Not on file Insurance [place] MEDICAID [facility] Member Subscriber Plan / Payer (Ef fective 2017-Present) Name:Zara Quinonez Relation to Subscriber:Self Name:Zara Quinonez Payer ID:[id number] Type:Indemnity Address: [facility] [id number] [place] [address] Care Teams Textile Machine Operator Relationship Specialty Start Date End Date Julio Coleman NP [address] [place] [id number] PCP - General 06/24/18
--- OUTSIDE RECORDS SUMMARY | 2024-06-25 12:14 | XMS_ITS | Clinical Summary ---
Author Organization [facility] Address [address] [place] [address] Care Team Providers Care Disability Benefits Specialist Name Role Phone Unavailable Primary Care Provider [...] Quinonez TPL/AUTO Self 2000 [address] [place] [address]
--- OUTSIDE RECORDS SUMMARY | 2024-06-25 12:14 | XMS_ITS | Clinical Summary ---
Author Organization [facility] Address [address] [place] [address] Care Team Providers Care Animal Herder Name Role Phone Unavailable Primary Care Provider [...] Health Maintenance Due Date Last Done Comments HPV Vaccines (1 - Male 3-dos e series) 2013 DTaP,Tdap,and Td Vaccines (1 - Tdap) 2017 Hepatitis B Vaccines (1 of 3 - [...]
--- OUTSIDE RECORDS SUMMARY | 2024-06-25 12:14 | XMS_ITS | Continuity of Care Document ---
Author Name [facility] Organization [facility] Care Team Providers Care Stereoplotter Operator Name Role Phone [facility] Unavailable Unavailable Problems Combined list of problems from Department of Defense and Veterans [facility] facilities. It does not include entries that were removed or entered in error. Problem Status Onset Date Problem Type Date of Resolution Comme nts Source Encounter for screening for other viral diseases Inactive 07/28/2020 Condition DoD Medications Combined list of outpatient medications from Department of Defense and Veterans [facility] facilities.Medications provided include 1) outpatient medications from the last 15 months, and 2) patient-reported medications. Medication Details Route Status Patient Instructions Prescription Expires Prescription Number Last Dispense Date Ordering Provider Order Date Order Qty Source ATORVASTATI N CALCIUM (atorvastat in calcium), 40 MG, TABLET, ORAL, Inventalator PHARMA I, 1000 ea. BOTTLE Active [id number] 2023 90 Pharmac y Data Transac tion Service Facilit y CYCLOBENZAP RINE HCL (cyclobenza joselin HCl), 10 MG, TABLET, ORAL, TEVA [place], 1000 ea. BOTTLE Active [id number] 2023 28 Pharmac y Data Transac tion Service Facilit y Allergies, Adverse Reactions, Alerts Combined list of allergies from Department of Defense and Veterans Affairs facilities. It does not include entries that [...] Site Reaction Lot Number CVX Code Drug Pasteurizing Machine Operator Status Comments Source influenza, injectable, quadrivalent 2020 [id number] Seqirus complet ed influenza , injectabl e, quadrival ent 03/09/21 Given Ambulat ory Pharmac y influenza, injectable, quadrivalent, contains preservative 1 2020 [id number] 158 Seqirus (SEQ) comple t ed influenza , injectabl e, quadrival ent, contains preservat alexander DoD COVID Vaccine Pfizer 2020 [id number] PFIZER complet ed COVID Vaccine Pfizer 02/20/21 Given Ambulat ory Pharmac y COVID Vaccine Pfizer 2020 [id number] PFIZER complet ed COVID Vaccine Pfizer 01/24/21 Given Ambulat ory Pharmac y SARS-COV-2 (COVID-19) vaccine, mRNA, spike protein, LNP, preservative free, 30 mcg/0.3mL dose 1 2020 [id number] 208 Pfizer, Inc (PFR) complet ed SARS-COV- [...] free DoD measles/mumps /rubella virus vaccine 2019 [id number] 03 Merck & Company Inc complet ed measles/m umps/rube lla virus vaccine 05/15/19 Given Ambulat ory Pharmac y hepatitis A adult vaccine 2019 [id number] 52 GlaxoSmithKli ne complet ed hepatitis A adult vaccine 05/15/19 Given Ambulat ory Pharmac y measles, mumps and rubella virus vaccine 2 2019 [id number] 03 Merck (MSD) complet ed measles, mumps and rubella virus vaccine DoD hepatitis A vaccine, adult dosage 2 2019 [id number] 52 TheSedge.orgine (SKB) complet ed hepatitis A vaccine, adult dosage DoD influenza, injectable, quadrivalent- pf 2018 zzLef t Arm [id number] 150 Seqirus complet ed influenza , injectabl e, quadrival ent-pf 03/18/19 Given Ambulat ory Pharmac y Influenza, injectable, quadrivalent, preservative free 1 2018 LUISA JOHANNE Rona [id number] 150 Seqirus (SEQ) complet ed Influenza , injectabl e, quadrival ent, preservat alexander free DoD varicella virus vaccine 2018 [id number] 21 Merck & Company Inc complet ed varicella virus vaccine 11/18/18 Given Ambulat ory Pharmac y varicella virus vaccine 2 2018 [id number] 21 Merck (MSD) complet ed varicella virus vaccine DoD tetanus, diphtheria, acellular pertu is 2018 [id number] 115 GlaxoSmithKli ne complet ed tetanus, diphtheri a, acellular pertussis 10/17/18 Given Ambulat ory Pharmac y poliovirus vaccine, inactivated 2018 [id number] 10 sanofi pasteur complet ed polioviru s vaccine, inactivat ed 10/17/18 Given Ambulat ory Pharmac y adenovirus vaccine, live 2018 [id number] 143 Teva Pharmaceutica ls complet ed adenoviru s vaccine, live 10/17/18 Given Ambulat ory Pharmac y measles/mumps /rubella virus vaccine 2018 [id number] 03 Merck & Company Inc complet ed measles/m umps/rube lla virus vaccine 10/17/18 Given Ambulat ory Pharmac y meningococcal A,C,Y,W-135 (MCV4P) 2018 [id number] 114 sanofi pasteur complet ed meningoco ccal A,C,Y,W-1 35 (MCV4P) 10/17/18 Given Ambulat ory Pharmac y varicella virus vaccine 2018 [id number] 21 Merck & Company Inc complet ed varicella virus vaccine 10/17/18 Given Ambulat ory Pharmac y hepatitis A adult vaccine 2018 [id number] 52 GlaxoSmithKli ne complet ed hepatitis A adult vaccine 10/17/18 Given Ambulat ory Pharmac y measles, mumps and rubella virus vaccine 1 2018 [id number] 03 Merck (MSD) complet ed measles, mumps and rubella virus vaccine DoD poliovirus vaccine, inactivated 1 2018 [id number] 10 Sanofi Pasteur ([facility]) complet ed polioviru s vaccine, inactivat ed DoD varicella virus vaccine 1 2018 [id number] 21 Merck (MSD) complet ed varicella virus vaccine DoD hepatitis A vaccine, adult dosage 1 2018 [id number] 52 SmithKline (SKB) complet ed hepatitis A vaccine, adult dosage DoD meningococcal polysaccharid e (groups A, C, Y and W-135) diphtheria toxoid conjugate vaccine (MCV4P) 2018 [id number] 114 Sanofi Pasteur (PMC) complet ed meningoco ccal polysacch aride (groups A, C, Y and W-135) diphtheri a toxoid conjugate vaccine (MCV4P) DoD tetanus toxoid, reduced diphtheria toxoid, and acellular pertu is vaccine, adsorbed 1 2018 [id number] 115 SmithKline (SKB) complet ed tetanus toxoid, reduced diphtheri a toxoid, and acellular pertussis vaccine, adsorbed DoD Adenovirus, type 4 and type 7, live, oral 2018 [id number] 143 [employer] (BRR) complet ed Adenoviru s, type 4 [...] facility. Vital Sign Value Date Comments Source Peripheral Pulse Rate 79 bpm 06/03/2024 11:51:[address] [place] [address] Systolic Blood Pressure 120 mm[Hg] 06/03/2024 11:51:[address] [place] [address] Diastolic Blood Pressure 80 mm[Hg] 06/03/2024 11:51:[address] [place] [address] Encounters Combined list of: 1) Encounters from Department of Veterans Affairs facilities going backup to the last 18 months, not all VA inpatient encounters are included; 2) Encounters from the Department of Defense facilities going backup to 280 months. Location Location Details Encounter Type Encounter Number Reason For Visit Attending Provider ADM Date DC Date Status Disposition Source [address] [place] [address] Group([facility] Physical Therapy) OUTPATIENT [id number] Notes Entered by: ROBERT WONG 28 Oct 2018 1346 ------- ------- ------- ------- -- Knee pain ACACIA JOSE EASON 10/28 Released with Work/Duty Limitations [facility] Physica l Therapy ) [facility] Physical Therapy) OUTPATIENT [id number] Notes Entered by: ROBERT WONG 31 Oct 2018 1300 ------- ------- ------- ------- -- Knee pain ACACIA JOSE EASON 10/31 Released with Work/Duty Limitations [facility](T [facility] Physica l Therapy ) [facility] Primary Care) OUTPATIENT [id number] Notes Entered by: ILIANA TIRADO 18 Nov 2018 1135 ------- ------- ------- ------- -- ROSA CALLEJAS 11/18 Released w/o Limitations [facility](I Primary Care) [facility] Ambulator y) OUTPATIENT [id number] toe pain LISALUDY TANYA Jarod 12/31 Released w/o Limitations [facility](T MC Ambulat ory) [facility] Ambulator y) OUTPATIENT [id number] Notes Entered by: Lenny ESPINOSA 02 Jan 2019 0722 ------- ------- ------- ------- -- EMS weak and dizzy MOHAN ESTRADA 01/02 Released w/o Limitations [facility](T MC Ambulat ory) [facility] Ambulator y) OUTPATIENT [id number] Notes Entered by: Asia ADKINS* 02 Jan 2019 0833 ------- ------- ------- ------- -- ekg CORBIN Thompson 01/02 Released w/o Limitations [facility](T MC Ambulat ory) [facility] Ambulator y) OUTPATIENT [id number] f/u UA MOHAN ESTRADA 01/05 Released w/o Limitations [facility](T Ambulat ory) [facility](C Physical Therapy) OUTPATIENT [id number] Notes Entered by: ROBYN GRANADOS 16 Jan 2019 1127 ------- ------- ------- ------- -- I - right ankle pain and knee stiffne ss HARESH MORRIS 01/16 Released w/o Limitations [facility](T Physica l Therapy ) Medical Group([facility] C Flu Clinic) OUTPATIENT [id number] AMBROSIO PAIGE 03/18 Released w/o Limitations [facility] Flu Clinic) Medical Group([facility] Primary Care) OUTPATIENT [id number] Notes Entered by: MACY DICKSON 24 Jun 2019 0741 ------- ------- ------- ------- -- JAI GARCIA 06/24 Released w/o Limitations [facility](I Primary Care) [facility] [place]([facility] Deploymen t Clinic) OUTPATIENT [id number] Notes Entered by: Brandie RED 08 Jul 2020 0658 ------- ------- ------- ------- -- NEDRA SKINNER 07/08 Released w/o Limitations [facility] [place]([facility] Deploym ent Clinic) [facility] [place]([facility] Hearing Program) OUTPATIENT [id number] Notes Entered by: BI OLIVA 08 Jul 2020 0844 ------- ------- ------- ------- -- ANNIE MURPHY 07/08 Released w/o Limitations [facility] [place]([facility] Hearing Program ) Theater Facility OUTPATIENT [id number] Theater Provider 07/29 Released w/o Limitations Theater Facilit y [facility] [place]([facility] Deploymen t Clinic) OUTPATIENT [id number] Notes Entered by: Asia VALDES 06 Apr 2021 0951 ------- ------- ------- ------- -- KAYLAN PEARL 04/06 Released w/o Limitations [facility] [place]([facility] Deploym ent Clinic) [facility] [place]([facility] Hearing Program) OUTPATIENT [id number] Notes Entered by: BI OLIVA 06 Apr 2021 1236 ------- ------- ------- ------- -- HERO LOPEZ 04/06 Released w/o Limitations [facility] [place](SR P Hearing Program ) [facility] [place]([facility] Deploymen t Clinic) OUTPATIENT [id number] Notes Entered by: SENIA BROCK 14 Apr 2021 0750 ------- ------- ------- ------- -- LORAINE CARRANZA 04/14 Released w/o Limitations [facility] [place]([facility] Deploym ent Clinic) [address] [facility] Outside Documentat ion Only [id number] 04/09 Discharge Disposition: Home or Self Care [address] [facility] [address] [place] [facility] Between Visit [id number] 04/09 Discharge Disposition: Home or Self Care [address] [facility] [address] [facility] Mass Readiness [id number] 06/03 Discharge Disposition: Home or Self Care [...] WITH SCORING AND DOCUMENTATION, PER STANDARDIZED INSTRUMENT [address] [place] [address] PURE TONE AUDIOMETRY (THRESHOLD), AUTOMATED; AIR ONLY [facility] ADMINISTRATION OF PATIENT-FOCUSED HEALTH RISK ASSESSMENT INSTRUMENT (EG, HEALTH HAZARD APPRAISAL) WITH SCORING AND DOCUMENTATION, PER STANDARDIZED INSTRUMENT [facility] PURE TONE AUDIOMETRY (THRESHOLD), AUTOMATED; AIR ONLY [facility] SCREENING TEST OF VISUAL ACUITY, QUANTITATIVE, BILATERAL [facility] VARICELLA VIRUS VACCINE (JOSEPHINE), LIVE, FOR SUBCUTANEOUS USE [facility] IMMUNIZATION ADMINISTRATION (INCLUDES PERCUTANEOUS, INTRADERMAL, SUBCUTANEOUS, OR INTRAMUSCULAR INJECTIONS); 1 VACCINE (SINGLE OR COMBINATION VACCINE/TOXOID) [facility] THERAPEUTIC PROCEDURE, 1 OR MORE AREAS, EACH 15 MINUTES; THERAPEUTIC EXERCISES TO DEVELOP STRENGTH AND ENDURANCE, RANGE OF MOTION AND FLEXIBILITY [facility] ELECTROCARDIOGRAM, ROUTINE ECG WITH AT LEAST 12 LEADS; INTERPRETATION AND REPORT ONLY [facility] ELECTROCARDIOGRAM, ROUTINE ECG WITH AT LEAST 12 LEADS; TRACING ONLY, WITHOUT INTERPRETATION AND REPORT [facility] ADENOVIRUS VACCINE, TYPE 7, LIVE, FOR ORAL USE [facility] THERAPEUTIC PROCEDURE, 1 OR MORE AREAS, EACH 15 MINUTES; THERAPEUTIC EXERCISES TO DEVELOP STRENGTH AND ENDURANCE, RANGE OF MOTION AND FLEXIBILITY [facility] THERAPEUTIC PROCEDURE, 1 OR MORE AREAS, EACH 15 MINUTES; THERAPEUTIC EXERCISES TO DEVELOP STRENGTH AND ENDURANCE, RANGE OF MOTION AND FLEXIBILITY [facility] EAR MOLD/INSERT, NOT DISPOSABLE, ANY TYPE [facility] Exercises A isted Exercises For ROM Exercises Assisted [place] ROM [address] [place] R[place]ER [facility] Athletic Training Re-evaluation Athletic Training Re-evaluation 02340 [place] ROGER [facility] Threshold Audiogram (Pure Tone) Automated Threshold Audiogram (Pure Tone) Automated [id number] ANNIE VAZQUEZ [facility] Exercises A isted Exercises For ROM [place]ercises [place] [address] [place] [facility] Immunization Administration One Vaccine Immunization Administration One Vaccine 57039 STICKFORT, ROSA [facility] Immunization Administration Each Additional Vaccine Immunization Administration Each Additional Vaccine 61902 [facility] Hepatitis A Vaccine Adult Dosage (Intramuscular Use) Hepatitis A Vaccine Adult Dosage (Intramuscular Use) 26790 STICKFORT, ROSA [facility] Vaccines Viral Polio, Inactivated (Salk) Vaccines Viral Polio, Inactivated (Salk) 98177 [facility], [facility] Vaccines Viral Measles, Mumps and Rubella, Live Vaccines Viral Measles, Mumps and Rubella, Live 22585 [facility] Tdap Vaccine Tdap Vaccine 77430 [facility] Immunization Admin Intranasal / Oral Each Additional Vaccine Immunization Admin Intranasal / Oral Each Additional Vaccine 11209 [facility], [facility] Vaccines Adenovirus Type 4 Live, For Oral Use Vaccines Adenovirus Type 4 Live, For Oral Use 54180 [facility], [facility] Vaccines Adenovirus Type 7 Live, For Oral Use Vaccines Adenovirus Type 7 Live, For Oral Use 93064 [facility], [facility] ECG Performance of Tracing Only ECG Performance of Tracing Only 97599 MOHAN ESTRADA [facility] ECG Interpretation And Report Only ECG Interpretation And Report Only 89467 CORBIN ISSA [facility] Vaccines Viral Varicella (Active) Vaccines Viral Varicella (Active) 99568 JAI DICKSON [facility] No data available for this section Ambulato ry Pharmacy Social History Combined list of available smoking, tobacco, and other social history from Department of Defense and Veterans Affairs facilities. Social History Type Response Date Comment [facility] e Sex Representation Male 08/30/2021 Unknow n Organization This section is an empty social history section. [facility] Tobacco Frequent/Daily exposure to secondhand smoke in [...] from:Title : Education Note Author: FIDEL LOWE Date: 06/03/24 Extracted from:Title: RS-WOTY-Rlklqw Clinic Note-L3 profile Author: VICTOR HUGO BOND [...] temporary profile and to rediscuss with primary cardiac care nurse.? Patient notes that he is still pursuing permanent profile. Permit profile initiated and sent for second signature.? Patient aware PEYANIOW will contact him with instructions within 1-2 weeks.? If not contacted should be calling the clinic to request help/update on med board profiling.? Patient acknowledged all and agrees to care plan. 06/25/[address] [place] [address] Assessment and Plan Extracted from:Title : Education Note Author: CHRISSY FIDEL Adria Date: 06/03/24 Extracted from:Title: [id number]-[id number]-Nymnxf Clinic Note-L3 profile Author: VICTOR HUGO BOND [...] temporary profile and to rediscuss with primary cardiac care nurse.? Patient notes that he is still pursuing permanent profile. Permit profile initiated and sent for second signature.? Patient aware PEYANIOW will contact him with instructions within 1-2 weeks.? If not contacted should be calling the clinic to request help/update on med board profiling.? Patient acknowledged all and agrees to care plan. 06/25/2024 [facility] Functional Status Combined list of recent functional and cognitive assessments recorded at Department of Defense and Veterans Affairs (VA).VA Functional [place] Measurement (FIM) Scale: 1 = Total Assistance (Subject = 0% +), 2 = Maximal Assistance (Subject = 25% +), 3 = Moderate Assistance (Subject = 50% +), 4 = Minimal Assistance (Subject = 75% +), 5 = Supervision, 6 = Modified [place] (Device), 7 = Complete [place] (Timely, Safely). Assessment Date/Time Source Assessment Type Assessment Skill Assessment Score Assessment Details No data available for this section
== END 2024-06-25 17:05 | disposition home or self-care (01) ==
LOC: HO.HMCFM 10:29
PROVIDERS: PCP Family Medicine; Visit Provider Family Medicine
DX: E78.5 Hyperlipidemia, unspecified (principal); E78.6 Lipoprotein deficiency

== ENCOUNTER 2024-07-23 13:03 | Outpatient (AMB) | payer OTHER, SELFPAY ==
[2024-07-23 13:06] VITALS: BP 112/72; PULSE 70; O2SAT 98; BMI 32.0
--- NOTE | 2024-07-23 13:06 | A.OFFVIS_ITS ---
Vital Signs 07/23/24 13:06 Height 5 ft 11 in Weight 229 lb 8 oz BMI 32.0 BP 112/72 Blood Pressure Location Lt brachial Position Sitting Pulse 70 Pulse Source Pulse Oximeter Pulse Oximetry (%) 98 Oxygen Delivery Method Room Air Intake Visit Reasons: Follow up Intake Note: Patient presents follow up ANA. Patient not using CPAP stating he is sleeping better. Patient stated that due to him being in the (patient sleep study came back negative but was very close and was told he had to have it state he has it.) He is looking to see if we can state he no longer has it( Lost 30lbs). Allergies egg Allergy (Verified 07/23/24 13:10) Vomiting HPI Comments Details: 23 y/o male patient presents for follow up of sleep study. The home sleep study result was mild degree of sleep apnea. The AHI was 5/hr and oxygen eleazar was 90%. He has lost 30lbs since the last study, and sleeping better now. He goes to bed at 10pm wakes up at 6am, with zero bathroom breaks. He feels more refreshed in the mornings. He denies morning headaches, parasomnias, and RLS. He needs to be evaluated for sleep apnea at this time, unlikely due to 30lbs of weight loss. His memory, mood and diet are stable. He works out for 1 hour sessions 3x a week, with cardio, weight training and e ndurance training. He does not drink alcohol, smoke nicotine, or do edibles or MJ. [facility] Medical History No pertinent past medical history Surgical History No pertinent past surgical history Social History Household Members: Family Both parents involved: No Caregiver staying overnight: No Housing: House Are you a primary intensive care anaesthetist to a significant other at home: No Do you presently have visiting nurse or other home services: No 75 years or older and lives alone: No Alcohol intake: never Patient Tobacco Use Status: Never used Tobacco e-Cigarette/Vaping Use: Never Used Second Hand Smoke Exposure: No Special warren needs: No Agree to transfusion: Yes service: Yes Current occupational status: employed Sexual orientation: Straight/Heterosexual Gender identity: Male Cognitive needs: No Hearing needs: No Vision needs: No Review of Systems Const All systems reviewed & are unremarkable except as noted in HPI and below ENT Reports Normal hearing present Neuro Reports Normal hearing present Physical Exam Vital Signs: Last Vital Signs Pulse 70 07/23/24 13:06 BP 112/72 07/23/24 13:06 Pulse Ox 98 07/23/24 13:06 Oxygen Delivery Method Room Air 07/23/24 13:06 BMI result Body Mass Index 32.0 Const General: cooperative Nutritional Appearance: obese Orientation/consciousness: patient oriented x3 Limitations: no limitations HEENT Throat: Yes other (mallampati grade 4) Eyes Pupils: Equal, round and reactive pupils present Neck Neck: Yes full ROM and Yes supple Resp Effort & Inspection: normal respiratory effort and able to speak in complete sentences Neuro General: patient oriented x3, gait normal and moves all extremities Cranial nerves: Yes Facial sensation intact/muscles of mastication intact, Yes Equal, round and reactive pupils present, Yes Normal accommodation reflex present, Yes Bilaterally intact EOM present, Yes Normal facial strength present, Yes Midline tongue present, Yes Symmetric palate elevation present, Yes Normal hearing present, Yes Ability to bilaterally rotate head present and Yes Ability to bilaterally elevate shoulders present Cognition (Neuro): normal cognition Gait exam (Neuro): Normal gait present Motor exam (neuro): 5/5 motor strength present throughout, Pronator motor function not present, no tremor noted and Normal motor muscle tone present throughout Deep tendon reflexes (DTR's): Right triceps reflex intensity grade: 2+, Left triceps reflex intensity grade: 2+, Rt Biceps (C5, C6): 2+, Left biceps reflex intensity grade: 2+, Right brachioradialis reflex intensity grade: 2+, Left brachioradialis reflex intensity grade: 2+, Right patellar reflex intensity grade: 2+ and Left patellar reflex intensity grade: 2+ Psych Appearance: grossly normal Mental Status: mental status grossly normal Speech and movement: Normal speech and movement present Affect: normal affect Results Reviewed Results Reviewed: Labs Vit D is low HDL is low 37 LDL is High 01/2023 HST is consistent with AHI 5 and Oxygen Eleazar to 90% Assessment & Plan Assessment & Plan (1) Low vitamin D level: Code(s): R79.89 - Other specified abnormal findings of blood chemistry Category: Medical Plan BMI is 32 and patient has lost >30lbs, Continue with weight loss, and weekly exercise as tolerable. Vitamin D is low, start Vitamin d daily. May take magnesium 400mg PO for muscle cramps. Medications: New cholecalciferol (vitamin D3) take one capsule at bedtime by mouth. 25 mcg PO DAILY 90 days 90 caps 3RF MDD 1000unit R79.89 - Other specified abnormal findings of blood chemistry Patient Instructions: Continue with weight loss, and weekly exercise as tolerable, drink 60% of body weight in water. Vitamin D is low, start Vitamin d daily. HDL increase good fatty acids omega 3s. LDL decrease with statin use and consumption of healthy fats, avoid transfats, packaged foods, carbohydrates and sugars. May take magnesium 400mg PO for muscle cramps. Coding Level of Care Code Est Pt Level 3 (46766) Diagnoses Low vitamin D level R79.89 Time Spent (min) 30 Comment Evaluate for Sleep Apnea
--- OUTSIDE RECORDS SUMMARY | 2024-07-23 16:06 | XMS_ITS | Clinical Summary ---
Author Organization [facility] Address [address] [place] [address] Care Team Providers Care Xerox Machine Assembler Name Role Phone Unavailable Primary Care Provider [...] Quinonez TPL/AUTO Self 2000 [address] [place] [address]
--- OUTSIDE RECORDS SUMMARY | 2024-07-23 16:06 | XMS_ITS | Clinical Summary ---
Author Organization [facility] ity Address [address] [place] [address] Care Team Providers Care Security Guards Dispatcher Name Role Phone Unavailable Primary Care Provider [...]
--- OUTSIDE RECORDS SUMMARY | 2024-07-23 16:06 | XMS_ITS | Clinical Summary ---
Author Organization [facility] Address [address] [place] [address] Care Team Providers Care Sterilization Technician Name Role Phone Julio Coleman MANAGER OFFICE Primary Care Provider [phone] Source Comments PLEASE NOTE, if this patient is a minor, it may be UNLAWFUL to discuss sensitive information that is contained in these records (such as FAMILY PLANNING, MENTAL HEALTH or SUBSTANCE ABUSE) with the minor patient's parent or other person without the patient's specific authorization.[facility] Allergies No known active allergies Immunizations Immunization Administration Dates Next Due Bacillus Calmette-jaqueline (tb) [...] Plan of Treatment Not on file Insurance [place] MEDICAID [facility] Member Subscriber Plan / Payer (Ef fective 2017-Present) Name:Zara Quinonez Relation to Subscriber:Self Name:Zara Quinonez Payer ID:[id number] Type:Indemnity Address: [facility] [id number] [place] [address] Care Teams Sterilization Technician Relationship Specialty Start Date End Date Julio Coleman NP [address] [place] [id number] PCP - General 06/24/18
--- OUTSIDE RECORDS SUMMARY | 2024-07-23 16:06 | XMS_ITS | Continuity of Care Document ---
Author Name [facility] Organization [facility] Care Team Providers Care Assembler Hydraulic Backhoe Name Role Phone [facility] Unavailable Unavailable Allergies, Adverse Reactions, Alerts Combined list of allergies from Department of Defense and Veterans Affairs facilities. It does not include entries that were removed or entered in error. Substance Category Reaction Severity Reaction type Status Date Reported Comments Source Eggs Food allergy throws up Moderate Active [facility] Immunizations Combined list of available immunizations from the Department of Defense and Veterans Affairs facilities. Immunization Series Date Given Administered By Site Reaction Lot Number CVX Code Drug Swimming Pool Cleaner Status Comments Source influenza, injectable, quadrivalent 2020 [id number] Seqirus complet ed influenza , injectabl e, quadrival ent 03/09/21 Given Ambulat ory Pharmac y COVID Vaccine Pfizer 2020 [id number] PFIZER complet ed COVID Vaccine Pfizer 02/20/21 Given Ambulat ory Pharmac y COVID Vaccine Pfizer 2020 [id number] PFIZER complet ed COVID Vaccine Pfizer 01/24/21 Given Ambulat ory Pharmac y influenza, injectable, quadrivalent- pf 2019 [id number] 150 Unknown complet ed influenza , injectabl e, quadrival ent-pf 02/13/20 Given Ambulat ory Pharmac y measles/mumps /rubella virus vaccine 2019 [id number] Merck & Company Inc complet ed measles/m umps/rube lla virus vaccine 05/15/19 Given Ambulat ory Pharmac y hepatitis A adult vaccine 2019 [id number] 52 GlaxoSmithKli ne complet ed hepatitis A adult vaccine 05/15/19 Given Ambulat ory Pharmac y influenza, injectable, quadrivalent- pf 2018 zzLef t Arm [id number] 150 Seqirus complet ed influenza , injectabl e, quadrival ent-pf 03/18/19 Given Ambulat ory Pharmac y varicella virus vaccine 2018 [id number] Merck & Company Inc complet ed varicella virus vaccine 11/18/18 Given Ambulat ory Pharmac y tetanus, diphtheria, acellular pertu is 2018 [id number] 115 GlaxoSmithKli ne complet ed tetanus, diphtheri a, acellular pertussis 10/17/18 Given Ambulat ory Pharmac y poliovirus vaccine, inactivated 2018 [id number] 10 sanofi pasteur complet ed polioviru s vaccine, inactivat ed 10/17/18 Given Ambulat ory Pharmac y adenovirus vaccine, live 2018 [id number] 143 Teva Pharmaceutica ls complet ed adenoviru s vaccine, live 10/17/18 Given Ambulat ory Pharmac y measles/mumps /rubella virus vaccine 2018 [id number] 03 Merck & Company Inc complet ed measles/m umps/rube lla virus vaccine 10/17/18 Given Ambulat ory Pharmac y meningococcal A,C,Y,W-135 (MCV4P) 2018 [id number] sanofi pasteur complet ed meningoco ccal A,C,Y,W-1 35 (MCV4P) 10/17/18 Given Ambulat ory Pharmac y varicella virus vaccine 2018 [id number] 21 Merck & Company Inc complet ed varicella virus vaccine 10/17/18 Given Ambulat ory Pharmac y hepatitis A adult vaccine 2018 [id number] GlaxoSmithKli ne complet ed hepatitis A adult vaccine 10/17/18 Given Ambulat ory Pharmac y Vital Signs Combined list of inpatient and outpatient Vital Signs from Department of [facility] and Veterans Affairs, ranging from 12 months to all on record, depending upon the facility. Vital Sign Value Date Comments Source Peripheral Pulse Rate 79 bpm 06/03/2024 11:51:[address] [place] [address] Systolic Blood Pressure 120 mm[Hg] 06/03/2024 11:51:[address] [place] [address] Diastolic Blood Pressure 80 mm[Hg] 06/03/2024 11:51:[address] [place] [address] Encounters Combined list of: 1) Encounters from Department of Veterans Affairs facilities going backup to the last 18 months, not all [place] inpatient encounters are included; 2) Encounters from the Department of Defense facilities going backup to 280 months. Location Location Details Encounter Type Encounter Number Reason For Visit Attending Provider ADM Date DC Date Status Disposition Source Bentley61C-Allie eid MEPS Outside Documentat ion Only [id number] 04/09 Discharge Disposition: Home or Self Care 8861C-S fabianoi yifand MEPS [facility]C-[place] FOOTE Between Visit [id number] 04/09 Discharge Disposition: Home or Self Care 8861C-S gfi eld MEPS 8861C-[place] MEPS Mass Readiness [id number] 06/03 Discharge Disposition: Home or Self Care 8861C-S fabianoi yifand MEPS Procedures Combined list of: 1) Procedures from Department of Veterans Affairs facilities going back up to thelast 18 months, not all [place] non-surgical procedures are included; 2) All procedures from the Department of Defense facilities. Procedure Procedure Type Code Date Perfomer Comments Sourc e No data available for this section Ambulatory P harmacy Social History Combined list of available smoking, tobacco, and other social history from Department of Defense and Veterans Affairs facilities. Social History Type Response Date Comment Sourc e Sex Representation Male 08/30/2021 Unknow n Organization Tobacco Frequent/Daily expos ure to secondhand smoke in indoor/confined spaces No. [...] Author: FIDEL LOWE Date: 06/03/24 Extracted from:Title: GE-IDXY-Tbbsxz Clinic Note-L3 profile Author: VICTOR HUGO BOND [...] temporary profile and to rediscuss with primary primary care provider.? Patient notes that he is still pursuing permanent profile. Permit profile initiated and sent for second signature.? Patient aware PEBLOW will contact him with instructions within 1-2 weeks.? If not contacted should be calling the clinic to request help/update on med board profiling.? Patient acknowledged all and agrees to care plan. 07/23/[address] [place] [address] Assessment and Plan Extracted from:Title : Education Note Author: CHRISSY FIDEL Adria Date: 06/03/24 Extracted from:Title: NE-CTTA-Gbjwcq Clinic Note-L3 profile Author: VICTOR HUGO BOND [...] temporary profile and to rediscuss with primary primary care provider.? Patient notes that he is still pursuing permanent profile. Permit profile initiated and sent for second signature.? Patient aware PEYANIOW will contact him with instructions within 1-2 weeks.? If not contacted should be calling the clinic to request help/update on med board profiling.? Patient acknowledged all and agrees to care plan. 07/23/2024 [facility] Functional Status Combined list of recent functional and cognitive assessments recorded at Department of Defense and Veterans Affairs (VA).VA Functional Starr Measurement (FIM) Scale: 1 = Total Assistance (Subject = 0% +), 2 = Maximal Assistance (Subject = 25% +), 3 = Moderate Assistance (Subject = 50% +), 4 = Minimal Assistance (Subject = 75% +), 5 = Supervision, 6 = Modified Starr (Device), 7 = Complete Starr (Timely, Safely). Assessment Date/Time Source Assessment Type Assessment Skill Assessment Score Assessment Details No data available for this section
== END 2024-07-23 13:51 | disposition home or self-care (01) ==
LOC: HO.HSMS 13:04
PROVIDERS: PCP Family Medicine; Visit Provider Physician Assistant Medical
DX: R79.89 Other specified abnormal findings of blood chemistry (principal)
CPT/HCPCS: 99213

== ENCOUNTER → 2024-07-23 13:03 | Outpatient (BNVA) | payer OTHER, SELFPAY | PROVIDERS: PCP Family Medicine; Visit Provider Physician Assistant Medical | DX: R79.89 Other specified abnormal findings of blood chemistry (principal) | CPT/HCPCS: 99212 ==

== ENCOUNTER 2024-08-22 10:37 | Outpatient (REF) | payer OTHER, SELFPAY ==
--- OUTSIDE RECORDS SUMMARY | 2024-08-22 10:40 | XMS_ITS | Clinical Summary ---
Author Organization [facility] ity Address [address] [place] [address] Care Team Providers Care Joinery Machinist Name Role Phone Unavailable Primary Care Provider [...] 5 season) 2023 02/20/2021, 01/24/2021 Influenza Vaccine (Season Ended) 2024 HIB Vaccines Aged Out No longer eligi [...] age to complete this topic Meningococcal B Vaccine Aged Out No l onger eligible based on patient's age to complete [...]
--- OUTSIDE RECORDS SUMMARY | 2024-08-22 10:40 | XMS_ITS | Clinical Summary ---
Author Organization [facility] Address [address] [place] [address] Care Team Providers Care Title I Math Tutor Name Role Phone Unavailable Primary Care Provider [...] Quinonez TPL/AUTO Self [address] [place] [address]
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
--- OUTSIDE RECORDS SUMMARY | 2024-08-22 10:40 | XMS_ITS | Clinical Summary ---
Author Organization [facility] Address [address] [place] [address] Care Team Providers Care Foot Specialist Name Role Phone Julio Coleman GRAIN OILSEED OR PASTURE FARM MANAGER Primary Care Provider [phone] Source Comments PLEASE NOTE, if this patient [...] Plan of Treatment Not on file Insurance [place] MEDICAID [facility] Member Subscriber Plan / Payer (Ef fective 2017-Present) Name:Zara Quinonez Relation to Subscriber:Self Name:Zara Quinonez Payer ID:[id number] Type:Indemnity Address: [facility] [id number] [place] [address] Care Teams Foot Specialist Relationship Specialty Start Date End Date Julio Coleman NP [address] [place] [phone] PCP - General 06/24/18
[2024-08-22 11:40] LABS: Appearance Urine Clear; Color Urine Yellow; Glucose Urine UA Negative (Negative); Leukocyte Esterase Urine Negative (Negative); Nitrite Urine Negative (Negative); PH 6.5 (5.0-9.0); Specific Gravity - Urine 1.025 (1.005-1.025); Urine Blood Negative (Negative); Urine Ketones Trace mg/dL (Negative); Urine Protein Negative (Neg-Trace)
[2024-08-22 12:29] LABS: Alanine Aminotransferase 65 U/L (0-40); Albumin Level 4.2 g/dL (3.5-5.0); Alkaline Phosphatase 91 U/L (39-117); Anion Gap 9 (12-20); Aspartate Amino Transferase 42 U/L (5-37); Bilirubin Total 0.6 mg/dL (0.0-1.0); Blood Urea Nitrogen 12 mg/dL (9-16); Calcium 9.3 mg/dL (8.4-10.2); Carbon Dioxide 27 mmol/L (22-29); Chloride 108 mmol/L (96-108); Cholesterol 102 mg/dL (<200); Estimated Glomerular Filt Rate > 60; Glucose Fasting 80 mg/dL (60-99); HDL Cholesterol 19 mg/dL (>40); LDL Cholesterol Calculated 56 mg/dL (<100); Potassium 3.9 mmol/L (3.3-5.1); Sodium 140 mmol/L (135-145); Total Protein 7.3 g/dL (6.5-8.0); Triglycerides 138 mg/dL (<150)
[2024-08-22 12:42] LABS: Creatinine Urine 189.28 mg/dL; Microalbumin Urine < 5.0 mg/L
[2024-08-22 12:47] LABS: TSH reflex Free T4 1.22 uIU/mL (0.32-4.0)
== END 2024-08-22 10:38 | disposition home or self-care (01) ==
LOC: HO.LAB 10:37
PROVIDERS: PCP Family Medicine; Visit Provider Family Medicine
DX: Z00.00 Encounter for general adult medical examination without abnormal findings (principal); E78.5 Hyperlipidemia, unspecified; I10 Essential (primary) hypertension
CPT/HCPCS: 36415; 80053; 80061; 81003; 82043; 82570; 84443

== ENCOUNTER → 2024-08-24 11:34 | Outpatient (BNVA) | payer OTHER, SELFPAY | PROVIDERS: PCP Family Medicine; Visit Provider Family Medicine | DX: Z13.89 Encounter for screening for other disorder (principal) ==

== ENCOUNTER → 2024-09-22 10:48 | Outpatient (REF) | payer OTHER, SELFPAY ==
--- OUTSIDE RECORDS SUMMARY | 2024-09-22 11:38 | XMS_ITS | Clinical Summary ---
Author Organization [facility] Address [address] [place] [address] Care Team Providers Care Horse Breaker Name Role Phone Unavailable Primary Care Provider [...] Quinonez TPL/AUTO Self 2000 [address] [place] [address]
== END ==
LOC: HO.SL 10:48
PROVIDERS: PCP Family Medicine; Visit Provider Physician Assistant Medical
DX: G47.19 Other hypersomnia (principal)
CPT/HCPCS: 95806

== ENCOUNTER → 2024-09-22 11:05 | Outpatient (BNV) | payer OTHER, SELFPAY | PROVIDERS: PCP Family Medicine; Visit Provider Psychiatry & Neurology Neurology | DX: R06.83 Snoring (principal) | CPT/HCPCS: 95806 ==

== ENCOUNTER 2024-10-20 12:59 | Outpatient (AMB) | payer OTHER, SELFPAY ==
--- NOTE | 2024-10-20 12:53 | A.OFFVIS_ITS ---
Intake Visit Reasons: f/u to discuss sleep study Intake Note: Patient presents follow up Sleep. HST in chart(AHI-3, RIKI-83%) Allergies egg Allergy (Verified 10/20/24 12:53) Vomiting HPI Comments Details: 24 y/o male patient presents for follow up for sleep evaluation. 08/2024 HST shows and AHI of 3 and Oxygen Nadirs to 83%, he does not show evidence of sleep apnea. Labs reviewed with patient today, HDL is low, patient education provided re: increasing HDL and decreasing LDL with diet and exercise. Decreasing saturated fats, processed foods, and canned foods will decrease LDL, continue implementing a nutrient dense diet with omegas, krys seeds, flax seeds. His memory and mood are stable. He has lost 30lbs since his last study, and is sleeping much better now, feeling more energetic. He goes to bed at 10pm wakes up at 6am, with zero bathroom breaks. He denies morning headaches, parasomnias, and RLS. He works out for 1 hour sessions 3x a week, consistently with cardio, weight training and endurance/resistance training. He does not drink alcohol, does not smoke nicotine, or do any illicit/ recreational drugs and or vape MJ. [facility] Medical History No pertinent past medical history Surgical History No pertinent past surgical history Social History Household Members: Family Both parents involved: No Caregiver staying overnight: No Housing: House Are you a primary patient care secretary to a significant other at home: No Do you presently have visiting nurse or other home services: No 75 years or older and lives alone: No Alcohol intake: never Patient Tobacco Use Status: Never used Tobacco e-Cigarette/Vaping Use: Never Used Second Hand Smoke Exposure: No Special warren needs: No Agree to transfusion: Yes service: Yes Current occupational status: employed Sexual orientation: Straight/Heterosexual Gender identity: Male Cognitive needs: No Hearing needs: No Vision needs: No Physical Exam Vital Signs: Tele-health appt today. Neuro Other: cooperative Psych Appearance: grossly normal Speech and movement: Normal speech and movement present Attitude: cooperative Thought process: Normal thought process present Thought content: Normal thought content present Insight: Good insight present (Psych) Judgement: Good judgement present (Psych) Telehealth Telehealth Telehealth Platform: Telephone Location of provider rendering services: practice address Location of patient: address on file Patient Identification confirmed using: Name, : Yes Telehealth method: voice only Patient verbally consented to treatment: Yes Patient verbally consented to billing insurance company: Yes Minutes spent on Phone/Video with Pt.: 15 Results Reviewed Results Reviewed: 08/2024 HST is consistent with AHI is 3 and O2 Nadirs to 83%. No evidence of sleep apnea. Assessment & Plan Assessment & Plan (1) Low vitamin D level: Code(s): R79.89 - Other specified abnormal findings of blood chemistry Category: Medical (2) Fatigue: Code(s): R53.83 - Other fatigue Category: Medical Qualifiers: Fatigue type: unspecified Qualified Code(s): R53.83 - Other fatigue Plan HST is consistent with no evidence of obstructive sleep apnea. AHI is 3 and Oxy gen Nadirs to 83% Patient has lost >30lbs., Continue with diet and exercise, managing your weekly physical workout plan and reducing saturated fats. Fatigue, labs reviewed with patient today, Vitamin D is low, start Vitamin d daily over the counter. HDL is low. May continue to take Magnesium 400mg for improved quality of sleep, and muscle cramps. May hold for loose stools. May continue to take B6 200mg PO daily at bedtime if you notice RLS type symptoms of numbness, tingling in feet. F/u with pcp if you have any additional concerns. Patient Instructions: Sleep Hygiene provided: set a scheduled bedtime and wake time to help regulate the circadian rhythm and balance the release of pituitary hormones. Sleep in a dark room, temperatures below 68 degrees, and no devices n bed. Limit caffeinated products 6 hours prior to bed, and limit fluids 2-4 hours prior to bed. Gentle night yoga, diffusing essential oils, and playing soft music can be relaxing. Coding Level of Care Code Tele Est Pt Level 4 (89217) Diagnoses Low vitamin D level R79.89 Fatigue, unspecified type R53.83 Fatigue type: unspecified Time Spent (min) 15 Comment Improving.
--- OUTSIDE RECORDS SUMMARY | 2024-10-20 14:41 | XMS_ITS | Clinical Summary ---
Author Organization [facility] Address [address] [place] [address] Care Team Providers Care Civil Engineering Design Draftsperson Name Role Phone Unavailable Primary Care Provider [...] 79 02/06/2023 5:36 PM EDT Temperature 36.7 C (98.1 F) 02/06/2023 5:32 PM EDT Respiratory Rate 15 02/06/2023 5:36 PM EDT [...] ( season) 2023 02/20/2021, 01/24/2021 Influenza Vaccine (Season Ended) 2024 03/09/2021, 02/13/2020, 03/18/2019, Additional history exists DTap / Tdap / Td (8 - Td or Tdap) 10/17/2028 10/17/2018, 06/12/2016, 12/14/2005, Additional history exists Pneumococcal Vaccine Aged Out No long er eligible based on patient's age to complete this topic RSV Ped < 20 months Aged Out No longe r eligible based on patient's age to complete this topic Zara Quinonez TPL/AUTO Self [address] [place] [address]
== END 2024-10-20 13:43 | disposition home or self-care (01) ==
LOC: HO.HSMS 12:59
PROVIDERS: PCP Family Medicine; Visit Provider Physician Assistant Medical
DX: R79.89 Other specified abnormal findings of blood chemistry (principal); R53.83 Other fatigue
CPT/HCPCS: 98012